=== PATIENT | female | born 1970 | race Caucasian/White ===

== ENCOUNTER 2019-12-18 10:08 | Outpatient (CLI) | payer OTHER, SELFPAY ==
--- NOTE | ~2019-12-18 | US_ITS ---
EXAMINATION:US venous doppler LE BI INDICATION:Localized edema TECHNIQUE: Multiple grayscale, color flow and Doppler images of the lower extremity deep venous syste ms were obtained and reviewed. COMPARISON:No prior studies for comparison. FINDINGS: The common femoral, superficial femoral and popliteal veins demonstrate normal respiratory variation, augmentation and compressibility. Color flow is also seen within the posterior tibial, pe roneal, greater saphenous and profunda veins. No evidence for venous reflux in either extremity. IMPRESSION: 1: No lower extremity deep venous thrombosis or venous reflux. Reviewed, dictated and finalized at location A. ND CREW LINESMAN
== END 2019-12-18 10:09 | disposition home or self-care (01) ==
LOC: ANHIMG 10:08
PROVIDERS: PCP Physician Assistant; Visit Provider Nurse Practitioner Adult Health
DX: R60.0 Localized edema (principal)
CPT/HCPCS: 93970

== ENCOUNTER 2019-12-18 14:46 | Outpatient (CLI) | payer OTHER, SELFPAY ==
--- NOTE | ~2019-12-18 | MM_ITS ---
EXAMINATION: MM screening [facility] BI w manny HISTORY: Screening mammogram TECHNIQUE: Craniocaudal and mediolateral oblique 3-D tomosynthesis images were obtained and synthetic 2-D images were generated. CAD analysis was submitted and interpreted. COMPARISON: Prior mammograms dating back to 04/24/2014 BREAST PARENCHYMAL COMPOSITION: There are scattered areas of fibroglandular density. FINDINGS: RIGHT BREAST: There is questionable slight increase in density of a mass in the middle/posterior thir d of the lower inner breast best appreciated 9 cm from the nipple on craniocaudal tomosynthesis image 16/79. LEFT BREAST: Stable focal asymmetry is present in the upper outer quadrant of the breast. There is no evidence of suspicious mass, calcification, or architectural distortion to suggest malignancy. There has been no significant interval change. IMPRESSION: 1. Possible increase in density of a mass of the lower inner right breast. 2. Additional mammographic views and possible breast ultrasound are recommended. BI-RADS Category 0: Incomplete: Needs additional imaging evaluation. Reviewed, dictated and finalized at location A. ISTRY TUTOR IMPRESSION: 1. Possible increase in density of a mass of the lower inner right breast. 2. Additional mammographic views and possible breast ultrasound are recommended . BI-RADS Category 0: Incomplete: Needs additional imaging evaluation.
== END 2019-12-18 14:47 | disposition home or self-care (01) ==
LOC: ANHIMG 14:48
PROVIDERS: PCP Physician Assistant; Visit Provider Obstetrics & Gynecology
DX: Z12.31 Encounter for screening mammogram for malignant neoplasm of breast (principal); R92.8 Other abnormal and inconclusive findings on diagnostic imaging of breast
CPT/HCPCS: 77063; 77067

== ENCOUNTER 2020-01-08 10:51 | Outpatient (CLI) | payer OTHER, SELFPAY ==
--- NOTE | ~2020-01-08 | MMUS_ITS ---
EXAMINATION: MM diagnostic mammo unilat RT, US breast RT limited HISTORY: Possible increased density of a right breast mass on screening mammogram TECHNIQUE: Additional 3-D tomosynthesis images of the right breast were performed and synthetic 2-D i mages were generated. CAD analysis was submitted and interpreted. High resolution limited right breas t ultrasound was performed. COMPARISON: 12/18/2019, 09/05/2018, 01/29/2017, 05/27/2015 FINDINGS: MAMMOGRAPHIC FINDINGS: There is a low density lobulated, circumscribed mass of the lower inner breast at the 4:00 location 1 0 cm from the nipple. ULTRASOUND: There is no evidence of focal abnormal solid or cystic lesion corresponding to the mammographic findi ng in question. There is a 4 mm cyst at the 4:00 location 7 cm from the nipple. IMPRESSION: 1. Probably benign right breast mass. 2. Recommend 6 month follow-up right diagnostic mammogram and ultrasound. BI-RADS category 3, probably benign findings. Reviewed, dictated and finalized at location A. IMPRESSION: 1. Probably benign right breast mass. 2. Recommend 6 month follow-up right diagnostic mammogram and ultrasound. BI-RADS category 3, probably benign findings.
== END 2020-01-08 10:52 | disposition home or self-care (01) ==
LOC: ANHIMG 10:53
PROVIDERS: PCP Physician Assistant; Visit Provider Obstetrics & Gynecology
DX: R92.8 Other abnormal and inconclusive findings on diagnostic imaging of breast (principal)
CPT/HCPCS: 76642; 77065

== ENCOUNTER 2020-07-10 11:31 | Outpatient (CLI) | payer OTHER, SELFPAY ==
--- NOTE | ~2020-07-10 | MMUS_ITS ---
EXAMINATION: MM diagnostic [facility]ida RT w manny, US breast RT complete HISTORY: Follow-up right breast asymmetry TECHNIQUE: Additional 3-D tomosynthesis images of the right breast were performed and synthetic 2-D i mages were generated. CAD analysis was submitted and interpreted. High resolution right breast ultras ound was performed. COMPARISON: Comparison to multiple prior studies sequentially, with oldest reviewed study dated 04/26. BREAST PARENCHYMAL COMPOSITION: Breast composed of scattered areas of fibroglandular density. FINDINGS: MAMMOGRAPHIC FINDINGS: There are no suspicious masses, calcifications or architectural distortion in the right breast to sug gest malignancy. ULTRASOUND: Right breast ultrasound: There is a 4 mm cyst at 4:00, 7 cm from the nipple and a 6 mm cyst at 9:00, 4 cm from the nipple. Mil dly prominent subareolar ducts. No suspicious masses to suggest malignancy. IMPRESSION: 1. No evidence for malignancy in the right breast. Benign findings. 2. Routine yearly screening mammogram and regular clinical breast examination are recommended. BI-RADS Category 2: Benign finding(s). Reviewed, dictated and finalized at location A. IMPRESSION: 1. No evidence for malignancy in the right breast. Benign findings. 2. Routine yearly screening mammogram and regular clinical breast examination a re recommended. BI-RADS Category 2: Benign finding(s).
== END 2020-07-10 11:32 | disposition home or self-care (01) ==
PROVIDERS: PCP Physician Assistant; Visit Provider Obstetrics & Gynecology
DX: N60.01 Solitary cyst of right breast (principal)
CPT/HCPCS: 76641; 77061; 77065; G0279

== ENCOUNTER 2020-08-30 13:44 | Outpatient (CLI) | payer OTHER, SELFPAY ==
--- NOTE | ~2020-08-30 | XR_ITS ---
EXAMINATION: XR shoulder LT min 2V DATE: 08/30/2020 14:04 INDICATION: Left shoulder pain. TECHNIQUE: 4 views of left shoulder were obtained. COMPARISON: None. FINDINGS: Bone alignment is normal. No fracture. Glenohumeral joint is normal. There is moderate acro mioclavicular joint osteoarthritis. IMPRESSION: 1. Moderate left acromioclavicular joint osteoarthritis. Reviewed, dictated and finalized at location A.
== END 2020-08-30 13:45 | disposition home or self-care (01) ==
PROVIDERS: PCP Physician Assistant; Visit Provider Physician Assistant
DX: M19.012 Primary osteoarthritis, left shoulder (principal)
CPT/HCPCS: 73030

== ENCOUNTER 2020-10-21 10:38 | Outpatient (CLI) | payer OTHER, SELFPAY ==
--- NOTE | ~2020-10-21 | XR_ITS ---
EXAMINATION: XR chest 2V DATE: 10/21/2020 10:59 INDICATION: Cough TECHNIQUE: PA and lateral views of the chest are obtained. COMPARISON: 01/29/2008, 09/01/2004 FINDINGS: The lungs are free of acute opacities. There is no pleural effusion or pneumothorax. The ca rdiomediastinal silhouette is normal. There is mild thoracic spondylosis. IMPRESSION: 1. No acute cardiopulmonary abnormality. Reviewed, dictated and finalized at location A. ROOM ATTENDANT
== END 2020-10-21 10:39 | disposition home or self-care (01) ==
PROVIDERS: PCP Physician Assistant; Visit Provider Physician Assistant
DX: R05 Cough (principal)
CPT/HCPCS: 71046

== ENCOUNTER 2020-11-26 15:44 | Emergency (ER) | payer OTHER, SELFPAY ==
--- NOTE | ~2020-11-26 | CT_ITS ---
EXAMINATION: CT abdomen pelvis w con DATE: 11/26/2020 17:38 INDICATION: Abdominal pain TECHNIQUE: Computed tomography (CT) of the abdomen and pelvis was performed with 100 cc Omnipaque 350 intravenous contrast. Automated exposure control and iterative reconstruction technique were employe d. Exam dose: 1425.12 mGy-cm total exam DLP. COMPARISON: None. FINDINGS: The included lower lung zones are clear of infiltrate or consolidation. Normal heart size. No pericardial or pleural effusion. The liver, gallbladder, bile ducts, pancreas, pancreatic duct, spleen are unremarkable. There is a 3.7 x 4.2 cm soft tissue mass sandwiched between the posterior gastric fundus, left adrena l gland and the anterior aspect of the upper pole of the left kidney. Hypernephroma is not excluded. MR evaluation of the abdomen is recommended. 1.7 cm hypoenhancing lesion of the medial mid left kidney is noted. This would be better evaluated by MR imaging as well. There is an approximately 5 mm upper pole lesion with some fat attenuation which may be a small angio myolipoma of the left kidney. No right renal mass lesion is evident. No urinary tract calculus or hydroureteronephrosis. The urinary bladder is unremarkable. 10 mm peripherally enhancing left ovarian cyst. Peripherally enhancing 2 cm right ovarian cyst. There is mild fluid accumulation in the adnexal areas and dependent pelvis. IUD in expected position in the uterus. Normal caliber of the abdominal aorta. No intraperitoneal or retroperitoneal or pelvic mass lesion o r lymphadenopathy is detected. Normal appendix. There is diverticulosis of the left colon; no evidence of diverticulitis. Small fat containing umbilical hernia. Included skeletal structures are unremarkable, without suspicious osteosclerotic or osteolytic lesion s. IMPRESSION: Indeterminate .2 cm left retroperitoneal mass; MRI is recommended for further evaluatio n of this and a 1.7 cm left renal lesion. Bilateral ovarian cysts IUD in uterus Diverticulosis of the left colon Reviewed, dictated and finalized at Location A. Reviewed, dictated and finalized at location A. P HOME PARAPROFESSIONAL IMPRESSION: Indeterminate .2 cm left retroperitoneal mass; MRI is recommended for further evaluation of this and a 1.7 cm left renal lesion. Bilateral ovarian cysts IUD in uterus Diverticulosis of the left colon
[2020-11-26 15:49] VITALS: BP 138/75; PULSE 95; RESP 20; TEMP 36.9; O2SAT 98
[2020-11-26 16:38] LABS: Basophils Percent Auto 0.4 % (0.2-1.2); Eosinophils Absolute Auto 0.2 K/mm3 (0-0.3); Eosinophils Percent Auto 1.6 % (0-4.4); Hematocrit 41.8 % (37.0-47.0); Hemoglobin 14.7 g/dL (12.0-15.0); Immature Granulocyte Absolute 0.04 K/mm3 (0.00-0.031); Immature Granulocyte Percent A 0.4 % (0-0.5); Lymphocytes Absolute Auto 2.84 K/mm3 (0.9-3.2); Mean Corpuscular HGB Conc 35.2 g/dl (32-36); Mean Corpuscular Hemoglobin 30.3 pg (26-34); Mean Corpuscular Volume 86.2 fl (80-100); Mean Platelet Volume 8.8 fl (7.4-10.4); Monocytes Absolute Auto 0.8 K/mm3 (0.1-0.6); Monocytes Percent Auto 7.3 % (2.6-8.5); Neutrophils Percent Auto 64.3 % (45.5-73.1); Platelet Count Result 281 k/mm3 (150-375); Red Blood Count 4.85 M/mm3 (4.2-5.4); Red Cell Distribution Width 11.9 % (11.5-14.5); White Blood Count 10.9 K/mm3 (4.5-10.0)
[2020-11-26 16:43] LABS: Add Urine Microscopic? YES; Appearance Urine Cloudy (Clear); Bacteria Urine Trace /hpf; Bilirubin Urine Negative (Negative); Blood Urine 1+ (Negative); Color Urine Straw (Yellow); Glucose Urine UA Negative (Negative); Ketones Urine Negative (Negative); Leukocyte Esterase Ur 2+ LEU/UL (Negative); Mucus Urine Rare /lpf; Nitrate Urine Negative (Negative); Protein Urine Negative (Negative); Specific Grav Ur 1.008 (1.001-1.035); Squamous Epithelial Cell Urine Many /hpf (Few); Urobilinogen Urine Negative mg/dL (<2.0); WBC Urine 0-3 /hpf
[2020-11-26 16:51] LABS: Alanine Aminotransferase 12 U/L (4-35); Alkaline Phosphatase 78 U/L (38-126); Anion Gap 8 mmol/L (8-16); Aspartate Amino Transferase 18 U/L (14-36); Bilirubin,Total 0.4 mg/dL (0.2-1.3); Blood Urea Nitrogen 8 mg/dL (7-17); Calcium 8.8 mg/dL (8.4-10.2); Carbon Dioxide 22 mmol/L (22-30); Chloride 106 mmol/L (98-107); Estimated CRCL calculation 139 ml/min; Estimated Glomerular Filt Rate > 60; Glucose 84 mg/dL (65-105); Lipase 449 U/L (23-300); Potassium 3.7 mmol/L (3.4-5.0); Sodium 136 mmol/L (137-145)
--- NOTE | 2020-11-26 17:25 | PC.NURSE ---
pt declined pain medicine at this time. Will continue to monitor pain level.
--- NOTE | 2020-11-26 19:21 | ED.ABDPAIN ---
HPI - Abdominal Pain General Chief Complaint: Abdominal Pain Stated Complaint: abd pain Time Seen by Provider: 11/26/20 15:58 Source: patient Mode of arrival: ambulatory Limitations: no limitations History of Present Illness HPI narrative: Patient presents with chief complaint of umbilical pain that has been waxing and waning in intensity it began suddenly last night. Patient states she has not been able to find any identifying triggers however she became really concerned when the pain intensified this morning but she was able to lay down and the pain began to subside and she was able to go back to sleep so she just presented to her primary care for evaluation today. Her primary care was concerned and told her to go to the emergency department for further investigation. Patient states she was able to pass a bowel movement and did not notice any changes however she did not really look. Patient denies any vomiting although she states when the pain present she does have some nausea. Patient denies any chest pain, shortness of breath, diaphoresis associated with the abdominal pain. Patient states she has never had abdominal pain like this. She denies no history of diverticulitis however the patient states she has never had a colonoscopy. Patient denies any fever, chills, cough. Related Data Allergies Allergy/AdvReac Type Severity Reaction Status Date / Time morphine Allergy Mild N/V Verified 11/26/20 16:36 Penicillins Allergy Unknown SEVERE Verified 11/26/20 16:36 LOCAL REACTION CHILD ???MUSCLE RELAXER-- Allergy Mild SVT-PAT Uncoded 11/26/20 16:36 EPISODE AFTER TAKING Review of Systems Review of Systems: Narrative: CONSTITUTIONAL: Denies fever, chills, or sweats. EYES: Denies visual changes, redness, or discharge. ENT: Denies rhinorrhea, congestion, sore throat, or otalgia. CARDIOVASCULAR: Denies chest pain, palpitations, or edema. RESPIRATORY: Denies cough or dyspnea. GASTROINTESTINAL: Reports abdominal pain, denies vomiting or diarrhea. GENITOURINARY: Denies dysuria or hematuria. SKIN: Denies rash or itching. MUSCULOSKELETAL: Denies back pain, joint pain, or myalgia. NEUROLOGIC: Denies headache, numbness, dizziness, or weakness. PSYCHIATRIC: Denies anxiety or depression. Exam Narrative: Exam Narrative: GENERAL: Well-appearing, well-nourished, and in no acute distress. HEAD: Normocephalic, atraumatic. EYES: PERRLA and EOMI. CHEST: Clear to auscultation. No respiratory distress. No wheezes rales or rhonchi HEART: Regular rate and rhythm. No murmur heard. Normal peripheral pulses. ABDOMEN: Soft, tender right at umbilicus- localized. Not able to palpate deformity, nondistended, normal active bowel sounds. EXTREMITIES: Normal range of motion. No edema. SKIN: Warm, dry, no rash. NEURO: No focal deficits. Alert and oriented x3. PSYCH: Normal mood and affect. Course Vital Signs Vital signs: Vital Signs Temperature 98.5 F 11/26/20 15:49 Pulse Rate 95 11/26/20 15:49 Respiratory Rate 20 11/26/20 15:49 Blood Pressure 138/75 11/26/20 15:49 Pulse Oximetry 98 11/26/20 15:49 Temperature 98.5 F 11/26/20 15:49 Pulse Rate 95 11/26/20 15:49 Respiratory Rate 20 11/26/20 15:49 Blood Pressure 138/75 11/26/20 15:49 Pulse Oximetry 98 11/26/20 15:49 MDM - Abdominal Pain MDM Narrative Medical decision making narrative: CT shows umbilical hernia but there is also Indeterminate .2 cm left retroperitoneal mass; MRI is recommended for further evaluation of this and a 1.7 cm left renal lesion. I have informed the patient of the need to follow-up for further investigation of the renal findings and I have talked to Dr. Hankins about patient's presentation, work-up, imaging and the need for MRI for further investigation into the renal mass lesion. He verbalizes understanding. Patient verbalized understanding of the plan. Patient will be given tramadol to take as needed for pain.
[2020-11-26 19:30] VITALS: BP 134/86; RESP 16
== END 2020-11-26 19:31 | disposition home or self-care (01) ==
PROVIDERS: Physician Assistant; Emergency Provider Emergency Medicine; Family Provider Hospitalist; PCP Physician Assistant
DX: K42.9 Umbilical hernia without obstruction or gangrene (principal); N83.202 Unspecified ovarian cyst, left side; N83.201 Unspecified ovarian cyst, right side; Z97.5 Presence of (intrauterine) contraceptive device; K57.90 Diverticulosis of intestine, part unspecified, without perforation or abscess without bleeding; N28.9 Disorder of kidney and ureter, unspecified; K66.9 Disorder of peritoneum, unspecified
CPT/HCPCS: 36415; 74177; 80053; 81001; 81025; 83690; 85025; 99284; Q9967

== ENCOUNTER 2020-12-03 15:30 | Outpatient (CLI) | payer OTHER, SELFPAY ==
--- NOTE | ~2020-12-03 | MR_ITS ---
EXAMINATION: MR abdomen wo/w con DATE: 12/03/2020 17:02 INDICATION: Left retroperitoneal mass. TECHNIQUE: Magnetic resonance imaging (MRI) of the abdomen was performed without and with 19 mL Multi Shay intravenous contrast. Sequences included coronal T2-weighted FS FSE, coronal and axial FIESTA F S, coronal LAVA-flex, axial LAVA, axial T2-weighted FSE, axial T1-weighted dual-echo FSPGR, axial STI R FSE, and axial DWI. Postcontrast sequences included coronal LAVA-flex and a time course of axial LA VA. COMPARISON: CT abdomen and pelvis 11/26/2020 FINDINGS: The liver, gallbladder, spleen, pancreas, and right adrenal gland are normal. There is a 4.2 cm left adrenal mass containing microscopic fat, consistent with an adenoma. Right kidney is normal. There ar e cysts in left kidney measuring up to 2.0 cm. There are no dilated loops of bowel. There are no path ologically enlarged lymph nodes. There is no free intraperitoneal fluid. There is an intrauterine dev ice in expected position. IMPRESSION: 1. 4.2 cm left adrenal adenoma. 2. Benign cysts in left kidney. Reviewed, dictated and finalized at location A. ENSATION EXPERT
== END 2020-12-03 15:31 | disposition home or self-care (01) ==
PROVIDERS: Family Provider Hospitalist; PCP Physician Assistant; Visit Provider Physician Assistant
DX: N28.89 Other specified disorders of kidney and ureter (principal); D35.02 Benign neoplasm of left adrenal gland
CPT/HCPCS: 74183; A9577

== ENCOUNTER 2021-03-21 12:25 | Outpatient (CLI) | payer OTHER, SELFPAY ==
--- NOTE | ~2021-03-21 | MMUS_ITS ---
EXAMINATION: MM diagnostic brigida BI w manny, US breast LT limited HISTORY: Follow-up breast asymmetries TECHNIQUE: Additional 3-D tomosynthesis images of the breasts were performed and synthetic 2-D images were generated. CAD analysis was submitted and interpreted. High resolution Limited left breast ultr asound was performed. COMPARISON: Comparison to multiple prior studies sequentially, with oldest reviewed study dated 05/27. BREAST PARENCHYMAL COMPOSITION: Breast composed of scattered areas of fibroglandular density FINDINGS: MAMMOGRAPHIC FINDINGS: There are no suspicious masses, calcifications or architectural distortion. Left breast asymmetry in the upper outer quadrant is less dense with spot compression views. ULTRASOUND: Limited left breast ultrasound: Normal heterogeneous echotexture in the upper outer quadrant of the l eft breast. IMPRESSION: 1. No evidence for malignancy in either breast. 2. Routine yearly screening mammogram and regular clinical breast examination are recommended. BI-RADS Category 1: Negative Reviewed, dictated and finalized at location A. IMPRESSION: 1. No evidence for malignancy in either breast. 2. Routine yearly screening mammogram and regular clinical breast examination a re recommended. BI-RADS Category 1: Negative
== END 2021-03-21 12:26 | disposition home or self-care (01) ==
LOC: ANHIMG 12:29
PROVIDERS: PCP Physician Assistant; Visit Provider Obstetrics & Gynecology
DX: R92.8 Other abnormal and inconclusive findings on diagnostic imaging of breast (principal)
CPT/HCPCS: 76642; 77062; 77066; G0279

== ENCOUNTER 2021-10-15 14:52 | Outpatient (CLI) | payer OTHER, SELFPAY ==
--- NOTE | ~2021-10-15 | CT_ITS ---
EXAMINATION: CT sinus wo con DATE: 10/15/2021 15:19 INDICATION: Chronic sinusitis. TECHNIQUE: Computed tomography (CT) of the paranasal sinuses was performed without intravenous contra st. The dose-length product was 306.67 mGy-cm. Automated exposure control and iterative reconstructio n technique were employed. COMPARISON: None FINDINGS: There is a mucous retention cyst of the left frontal sinus. There is mild mucosal thickenin g of the ethmoid and maxillary sinuses. Surgical changes of the ostiomeatal units noted. No air-fluid levels. No significant mucoperiosteal reaction. Leftward nasal septal deviation. IMPRESSION: 1. Mild paranasal sinus disease with mucous retention cyst in the left frontal sinus. Reviewed, dictated and finalized at location A. RNAL SPECIALIST
== END 2021-10-15 14:53 | disposition home or self-care (01) ==
LOC: ANHIMG 15:03
PROVIDERS: PCP Physician Assistant; Visit Provider Otolaryngology
DX: J34.2 Deviated nasal septum (principal); J32.9 Chronic sinusitis, unspecified; R09.82 Postnasal drip; R09.81 Nasal congestion; J39.2 Other diseases of pharynx
CPT/HCPCS: 70486

== ENCOUNTER 2021-10-17 16:49 | Outpatient (CLI) | payer OTHER, SELFPAY ==
--- NOTE | ~2021-10-17 | XR_ITS ---
XR ankle LT min 3V DATE: 10/17/2021 17:10 INDICATION: Left ankle sprain and 3 months left ankle pain TECHNIQUE: 4 views COMPARISON: None FINDINGS: Mild plantar calcaneal enthesopathy. No fracture or dislocation of the ankle or disruption of the ankle mortise. No periosteal reaction or bone destruction. IMPRESSION: Mild plantar calcaneal enthesopathy No fracture or dislocation Reviewed, dictated and finalized at location A. 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
== END 2021-10-17 16:50 | disposition home or self-care (01) ==
LOC: ANHIMG 16:54
PROVIDERS: PCP Physician Assistant; Visit Provider Physician Assistant
DX: S93.492A Sprain of other ligament of left ankle, initial encounter (principal); M77.32 Calcaneal spur, left foot
CPT/HCPCS: 73610

== ENCOUNTER 2021-11-28 01:37 | Day surgery (SDC) | payer OTHER, SELFPAY ==
[2021-11-25 10:37] VITALS: BMI 32.1
--- NOTE | 2021-11-25 10:49 | PC.NURSE ---
Report to the Outpatient Waiting Room, entrance under the green pavilion located off [facility], at time 0600 on date 11/28/21. OR Time: 0730. - You will be asked a series of questions to screen for COVID 19 for your protection. - A mask is required within the hospital. - No visitors are allowed at this time. Preoperative COVID Testing Requirements: No COVID Test needed if: (proof is required; if not received patient will have Rapid Test prior to entry) - Patient has received COVID Vaccine at least 14 days prior to procedure date or - Patient has positive COVID test result within last 90 days of surgery date. COVID Test needed if above criteria is not met Patients may have clear liquids (water, carbonated beverages, clear teas, apple juice) until 3 hours prior to surgery with a maximum of 20 ounces. - No food from midnight until time of surgery Take the following medications with a SIP of water the morning of surgery: VERAPAMIL, LEVOTHYROXINE Medications to discontinue per physician: VITAMINS/SUPPLEMENTS Date to take last dose: 11/24/21 Please no make-up, nail maltese, hairspray, perfume, deodorant, or body powder the day of surgery. No jewelry (including any body piercings) or valuables the day of surgery, leave them at home. Please take a shower or bath the night before, or the morning of, surgery with an antibacterial soap. Wear comfortable, loose fitting clothing. - Jewelry must be removed prior to entering the operating room. Rings and piercings that are not removed may be cut off. - The hospital will not accept responsibility for valuables. - Please leave all valuables, including medications, at home the day of surgery. If you are going home after surgery, a licensed moving van driver must drive you home. - NO public transportation without another adult. - We recommend that an adult stay with you for 24 hours following discharge. - We also recommend that you do not drive, make important decision, drink alcoholic beverages, or take any drugs that were not prescribed by your health care provider for at least 24 hours after your discharge time. Follow any additional instructions given to you from your surgeon. Telephone instructions given to MANNY BROOKE and asked if any additional questions and then verbalized understanding. Patient advised to call surgeon office or pre surgery nurse liaison [phone] if any additional questions.
--- NOTE | 2021-11-27 07:57 | PM.IMHP ---
H&P: HPI History of Present Illness Date/Time: 11/27/21 07:57 Chief Complaint: septal deviation turbinate hypertrophy chronic sinusitis recurrent sinusitis facial pressure facial pain nasopharyngeal cyst postnasal drainage nasal obstruction nasal congestion Narrative: patient presents for planned surgical procedures no change in medical history no change in symptoms Review of Systems Constitutional: Constitutional: Denies fatigue, Denies fever(s) and Denies lethargy Eyes: Eyes: Denies blurry vision and Denies change in vision ENT: Reports as per HPI Cardiovascular: Cardiovascular: Denies chest pain Respiratory: Respiratory: Denies cough Endocrine: Endocrine: Denies fatigue Hematologic/Lymphatic: Hematologic/Lymphatic: Denies easy bleeding, Denies easy bruising and Denies lymphadenopathy Allergic/Immunologic: Allergic/Immunologic: Denies seasonal rhinorrhea [facility] Family History Family History Father Diabetes mellitus Heart disease Thyroid disorder Mother Diabetes mellitus Heart disease TIA (transient ischemic attack) Other Depression Grandparent Alcoholism Grandparent Diabetes mellitus Tongue cancer Heart disease Social History Social History Smoking packs per day: 1 Smoking cigarettes per day: 20.0 Years smoked: 33 Smoking pack-years: 33.00 Smoking status: Former smoker Tobacco type: cigarettes Smoking end date: 12/30/20 Alcohol intake: current Drinks per week: 6 Substance use: never Substance use type: does not use Spiritual care concerns: No Meds Home Medications and Allergies Home Medications Medication Instructions Recorded Confirmed Type levocetirizine 5 mg tablet 5 mg PO HS 03/06/21 11/25/21 History levothyroxine 100 mcg capsule 100 mcg PO DAILY 03/06/21 11/25/21 History multivitamin 1 tablet PO DAILY 03/06/21 11/25/21 History verapamil 240 mg 24 hr 240 mg PO DAILY 03/06/21 11/25/21 History capsule,extended release azelastine 137 mcg (0.1 %) nasal 1 spray INTRANASAL Q12H #30 ml 04/21/21 11/25/21 Rx spray aerosol semaglutide (weight loss) 1.7 2.4 mg SUBCUT WEEKLY 10/06/21 11/25/21 History mg/0.75 mL subcutaneous pen injector ergocalciferol (vitamin D2) 1,250 mcg PO WEEKLY 11/25/21 11/25/21 History [Vitamin D2] Allergies Allergy/AdvReac Type Severity Reaction Status Date / Time morphine Allergy Mild N/V Verified 11/25/21 10:35 Penicillins Allergy Unknown SEVERE Verified 11/25/21 10:35 LOCAL REACTION CHILD ???MUSCLE RELAXER-- Allergy Mild SVT-PAT Uncoded 11/25/21 10:35 EPISODE AFTER TAKING Exam Const: General: cooperative, healthy appearing, comfortable, well developed and alert HENMT: Head: normal to inspection, normocephalic and atraumatic Ears: hearing grossly normal bilaterally, external ears normal, TM's normal bilaterally and EAC's normal General nose exam: Normal external nose present, Normal nares present, No nasal polyps present, mucous membranes and turbinates abnormal, abnormal septum and Other nasal findings present ( septal deviation turbinate hypertrophy) Face and sinus: normal facial exam Mouth: Yes Normal oral and palatal mucosa present, Yes lip normal, Yes tongue normal, Yes oropharynx normal and Yes moist mucous membranes Teeth and gingiva: dentition normal and gingiva normal Throat: posterior oropharynx normal, tonsils normal and uvula midline Eyes: General: appearance normal, both eyes and all related structures Periorbital: periorbital findings normal Eyelids: eyelids normal Conjunctivae: conjunctivae normal Sclera: sclerae normal Neck: Neck: normal visual inspection, full ROM and no lymphadenopathy Thyroid: thyroid normal Lymphatic: no lymphadenopathy noted Resp: Effort & Inspection: normal respiratory effort and able to speak in complete sentences Cardio: Jug
[2021-11-28] VITALS (9 sets, daily range): BP systolic 111–145; BP diastolic 64–77; PULSE 72–91; RESP 12–17; TEMP 36.7–36.9; O2SAT 97–100
[2021-11-28] MEDS: ACETAMINOPHEN 500 MG TABLET 1000 MG PO (06:50)
[2021-11-28] MEDS: LACTATED RINGERS 1,000 ML 30 ML IV CONT ×2 (06:58→09:40)
--- NOTE | 2021-11-28 07:02 | WPDANESEPPF ---
Anes - Initial Pre Proc Eval Procedure: Operation Date: 11/28/21 07:30 Proposed Procedures p Image Guided Endoscopic Bilateral Maxillary Antrostomy, Anterior Ethmoidectomy, Frontal Sinusotomy, Excision Nasopharyngeal Cyst, Bilateral Inferior Turbinectomy, - Christos Tamez MD s Septoplasty - Christos Tamez MD Date/Time: 11/28/21 07:02 Surgeon: Christos Tamez MD Pre Op Diagnosis: chronic sinusitis Patient Data Age: 51 Gender: F Height: 1.7 m Weight: 95.5 kg Last Vital Signs Temp 36.7 C 11/28/21 06:27 Pulse 85 11/28/21 06:27 Resp 16 11/28/21 06:27 BP 111/69 11/28/21 06:27 Pulse Ox 98 11/28/21 06:27 Allergies Allergy/AdvReac Type Severity Reaction Status Date / Time morphine Allergy Mild N/V Verified 11/25/21 10:35 Penicillins Allergy Unknown SEVERE Verified 11/25/21 10:35 LOCAL REACTION CHILD ???MUSCLE RELAXER-- Allergy Mild SVT-PAT Uncoded 11/25/21 10:35 EPISODE AFTER TAKING Home Medications Medication Instructions Recorded Confirmed Type levocetirizine 5 mg tablet 5 mg PO HS 03/06/21 11/28/21 History levothyroxine 100 mcg capsule 100 mcg PO DAILY 03/06/21 11/28/21 History multivitamin 1 tablet PO DAILY 03/06/21 11/28/21 History verapamil 240 mg 24 hr 240 mg PO DAILY 03/06/21 11/28/21 History capsule,extended release azelastine 137 mcg (0.1 %) nasal 1 spray INTRANASAL Q12H #30 ml 04/21/21 11/28/21 Rx spray aerosol semaglutide (weight loss) 1.7 2.4 mg SUBCUT WEEKLY 10/06/21 11/28/21 History mg/0.75 mL subcutaneous pen injector ergocalciferol (vitamin D2) 1,250 mcg PO WEEKLY 11/25/21 11/28/21 History [Vitamin D2] Patient hx anesthesia problems: none Family hx anesthesia problems: none Results Review: All pre-operative results and documents have been reviewed as part of the pre-operative evaluation. [facility] Past Medical History Medical History (Updated 11/28/21 @ 07:03 by Dheeraj Varela MD) Obesity Smoker SVT (supraventricular tachycardia) Surgical History Surgical History (Updated 11/28/21 @ 07:04 by Dheeraj Varela MD) H/O arthroscopic knee surgery History of adrenal surgery [place] 2020 laparoscopic removal of adrenal mass Family History Family History Father Diabetes mellitus Heart disease Thyroid disorder Mother Diabetes mellitus Heart disease TIA (transient ischemic attack) Other Depression Grandparent Alcoholism Grandparent Diabetes mellitus Tongue cancer Heart disease Social History Social History Smoking packs per day: 1 Smoking cigarettes per day: 20.0 Years smoked: 33 Smoking pack-years: 33.00 Smoking status: Former smoker Tobacco type: cigarettes Smoking end date: 12/30/20 Alcohol intake: current Drinks per week: 6 Substance use: never Substance use type: does not use Living arrangements: with family Spiritual care concerns: No Anes - Eval Final PreProcedure Day of Procedure 11/28/21 07:02 Patient weight: obese Heart: regular rate and rhythm Lungs: clear to auscultation Airway: Mallampati scale class II Neurological: alert and oriented Last oral intake: >/= 8 hours ASA classification: III Emergent: no Anesthetic plan: proceed Anesthesia type and monitoring: general ETT and standard monitoring Results Review: All pre-operative results and documents have been reviewed as part of the pre-operative evaluation. Informed Consent: The patient's anesthetic plan and its attendant risks and benefits were discussed with the patient/family/POA. Questions were solicited and answers provided to the satisfaction of the patient/family/POA.
--- NOTE | 2021-11-28 07:12 | WPDHPUPDATE1 ---
History and Physical Update Update Date/Time: 11/28/21 07:12 History and Physical has been reviewed, including an updated exam of the patient. There are NO changes in the patient's condition. Risks, benefits, and alternatives have been discussed and questions answered. Patient agrees to proceed with procedure.
[2021-11-28] MEDS: ceFAZolin 2 GM/D5W 50 ML 2 GM/50 ML BAG IVPB (07:29)
--- NOTE | 2021-11-28 07:29 | SUR.PREOP ---
PER DR WEST NO EKG NECESSARY
[2021-11-28] MEDS: SCOPOLAMINE 1.5 MG PATCH TRANSDERM (07:33)
[2021-11-28] MEDS: LIDO 1%/EPINEPHRINE 1:100,000 50 ML VIAL INFILTRATE (07:51)
[2021-11-28] MEDS: OXYMETAZOLINE HCL 0.05% NAS 15 ML BTL (*BKC) 1 SPRAY NASAL (07:52)
--- NOTE | 2021-11-28 09:20 | W.PM.PROC2 ---
Procedure Note - Detailed Date of Procedure 11/28/21 Pre-op Diagnosis chronic sinusitis, inferior turbinate hypertrophy, nasal obstruction, nasal congestion, nasopharyngeal cyst, postnasal drainage Post-op Diagnosis same Procedure Performed Image guided bilateral maxillary antrostomy, anterior ethmoid ectomy, frontal sinusotomy, inferior turbinate resection submucosally with outfracture, resection of nasopharyngeal cyst Surgeon Christos Tamez MD Anesthesia general Indications See above Findings Large nasopharyngeal cyst purulence within it resected successfully. This significant turbinate hypertrophy reduced well large mulberry tips well reduced, mucoid purulence in the opacified cells on the CT scan anterior ethmoids and frontals. Description of Procedure Patient correctly identified consent verified. Patient brought operating room. Time-out performed. General anesthesia induced endotracheal tube secured taped the left lower lip. Image guidance initiated. Second time-out performed. After patient was prepped and draped for procedure. Afrin-soaked pledgets placed allowed to sit for 5 minutes then removed. 0 degree endoscope utilized with the aforementioned findings noted. Nasopharyngeal cyst resected using combination of Zhang forceps biopsy sent microdebrider and Bovie suction electrocautery at a setting of 10. Hemostasis was excellent. Turbinates then outfractured. Keller tips these were injected with 0.75 cc 1% lidocaine 1 100,000 parts epinephrine into each inferior turbinate debrided submucosally using the microdebrider 2 mm blade and mulberry tips were cauterized using Bovie suction electrocautery at 15. Well reduced afterwards excellent hemostasis. Sinus surgery performed bilaterally maxillary antrostomies were created when widened using straight through cut backbiter and microdebrider anterior ethmoids had very osteitic bone Kerrison utilized to open them mucoid purulence located in the opacified cells microdebrider utilized to clean them up 70 degree scope utilized to perform frontal sinus sinusotomies. Mucoid purulence located the opacified cells. Afrin-soaked pledgets were placed the bilateral me I let to sit for 5 minutes. Excellent hemostasis. I performed all dictated portions of the procedure. There were no complications. Total blood loss about 20 cc. All hardware including pledgets were removed. Care the patient turned Anesthesiology. No packing biopsy sent of nasopharyngeal cyst. No complications. Estimated Blood Loss 20 Drains No Packing No Pathology yes Complications No immediate complications Condition stable Disposition PACU
[2021-11-28] MEDS: fentaNYL CITRATE INJ (*CRX) 100 MCG/2 ML VIAL 25 MCG IV PUSH ×2 (09:22→09:25)
[2021-11-28] MEDS: ONDANSETRON INJ 4 MG/2 ML VIAL IV PUSH (09:38)
[2021-11-28] MEDS: diphenhydrAMINE HCl INJ 50 MG/ML VIAL 25 MG IV PUSH ×2 (09:44→09:48)
--- NOTE | 2021-11-28 09:58 | SUR.PHASEI ---
PT STATES NAUSEA IS BETTER
== END 2021-11-28 11:30 | disposition home or self-care (01) ==
PROVIDERS: PCP Physician Assistant; Visit Provider Otolaryngology
PROC: (CPT 31256; principal; 2021-11-28 07:30)
DX: R51.9 Headache, unspecified (principal); R44.8 Other symptoms and signs involving general sensations and perceptions; J34.2 Deviated nasal septum; R09.81 Nasal congestion; J34.3 Hypertrophy of nasal turbinates; J32.9 Chronic sinusitis, unspecified; R09.82 Postnasal drip; J39.2 Other diseases of pharynx; J31.2 Chronic pharyngitis; I47.1 Supraventricular tachycardia; E03.9 Hypothyroidism, unspecified; E66.9 Obesity, unspecified; Z68.33 Body mass index [BMI] 33.0-33.9, adult; Z87.891 Personal history of nicotine dependence; J34.89 Other specified disorders of nose and nasal sinuses
CPT/HCPCS: 31256; 31254; 61782; 31276; 30140; 88305; 88313; A9270; J0690; J1100; J1200; J2250; J2405; J2704; J2765; J3010; J7120

== ENCOUNTER → 2022-01-29 11:11 | Outpatient (CLI) | payer OTHER, SELFPAY ==
--- NOTE | ~2022-01-29 | US_ITS ---
EXAMINATION: US soft tissue LE LT EXAM DATE: 01/29/2022 11:30 INDICATION: Localized swelling, Mass and lump, left lower limb . TECHNIQUE: Multiple grayscale and Doppler images of the symptomatic left tibial region were obtained (by a technologist who performed the scan) and subsequently reviewed. FINDINGS: Scanning in the left lower leg anterior region of concern demonstrates mildly edematous ap pearing fat without any focal abscess, mass or thrombophlebitis. IMPRESSION: Possible mild nonspecific subcutaneous edema. Reviewed, dictated and finalized at location B.
== END ==
PROVIDERS: PCP Family Medicine; Visit Provider Family Medicine
DX: R22.42 Localized swelling, mass and lump, left lower limb (principal)
CPT/HCPCS: 76882

== ENCOUNTER 2022-04-21 13:22 | Outpatient (CLI) | payer OTHER, SELFPAY ==
--- NOTE | ~2022-04-21 | MM_ITS ---
EXAMINATION: MM diagnostic brigida BI w manny HISTORY: Mammographic asymmetries TECHNIQUE: ML, MLO and CC 3-D tomosynthesis images of both breasts were performed and synthetic 2-D i mages were generated. CAD analysis was submitted and interpreted. COMPARISON: 03/21/2021 bilateral diagnostic mammogram and limited left breast ultrasound 07/10/2020 diagnostic right mammogram and complete right breast ultrasound 01/08/2020 diagnostic right mammogram and limited right breast ultrasound 12/18/2019, 09/05/2018,01/29/2017bilateral screening mammogram examinations BREAST PARENCHYMAL COMPOSITION: There are scattered areas of fibroglandular density. FINDINGS: Mild fibroglandular asymmetry. No suspicious mass or architectural distortion, malignant ca lcification, skin thickening or retraction or significant new or developing density is detected. IMPRESSION: 1. No mammographic evidence of malignancy 2. Routine annual mammographic screening is recommended. BI-RADS Category 2: Benign finding(s). Reviewed, dictated and finalized at location A.
== END 2022-04-21 13:23 | disposition home or self-care (01) ==
PROVIDERS: PCP Family Medicine; Visit Provider Obstetrics & Gynecology
DX: R92.2 Inconclusive mammogram (principal)
CPT/HCPCS: 77062; 77066; G0279

== ENCOUNTER 2022-09-08 00:45 | Day surgery (SDC) | payer OTHER, SELFPAY ==
[2022-08-28 15:53] VITALS: BMI 29.7
--- NOTE | 2022-09-08 07:13 | SUR.PREOP ---
Patient states she has IUD-Mirena. LMP was [address] Daily who states that no preg test is necessary. Cancelled order.
[2022-09-08 07:15] VITALS: BP 134/64; PULSE 88; RESP 18; TEMP 36.6; O2SAT 100
[2022-09-08] MEDS: LACTATED RINGERS 1,000 ML 150 ML IV CONT (07:25)
--- NOTE | 2022-09-08 07:35 | WPDANESEPPF ---
Anes - Initial Pre Proc Eval Procedure: Operation Date: 09/08/22 08:15 Proposed Procedures p Screening Colonoscopy - Ricardo Yang MD Date/Time: 09/08/22 07:35 Surgeon: Ricardo Yang MD Pre Op Diagnosis: Neoplasm Screening Patient Data Age: 52 Gender: F Height: 1.7 m Weight: 86.8 kg Last Vital Signs Temp 36.6 C 09/08/22 07:15 Pulse 88 09/08/22 07:15 Resp 18 09/08/22 07:15 BP 134/64 09/08/22 07:15 Pulse Ox 100 09/08/22 07:15 O2 Del Method Room Air 09/08/22 07:15 Allergies Allergy/AdvReac Type Severity Reaction Status Date / Time morphine Allergy Mild N/V Verified 09/08/22 07:10 Penicillins Allergy Unknown SEVERE Verified 09/08/22 07:10 LOCAL REACTION CHILD ???MUSCLE RELAXER-- Allergy Mild SVT-PAT Uncoded 09/08/22 07:10 EPISODE AFTER TAKING Home Medications Medication Instructions Recorded Confirmed Type levocetirizine 5 mg tablet 5 mg PO HS 03/06/21 09/08/22 History levothyroxine 100 mcg capsule 100 mcg PO DAILY 03/06/21 09/08/22 History multivitamin 1 tablet PO DAILY 03/06/21 09/08/22 History verapamil 240 mg 24 hr 240 mg PO DAILY 03/06/21 09/08/22 History capsule,extended release azelastine 137 mcg (0.1 %) nasal 1 spray intranasal Q12H #30 mL 04/21/21 09/08/22 Rx spray aerosol semaglutide (weight loss) 1.7 2.4 mg subcut WEEKLY 10/06/21 09/08/22 History mg/0.75 mL subcutaneous pen injector (Wegovy) ergocalciferol (vitamin D2) 1,250 1,250 mcg PO WEEKLY 11/25/21 09/08/22 History mcg (50,000 unit) capsule (Vitamin D2) mupirocin 2 % topical ointment 1 applic topical BID #22 grams 12/11/21 09/08/22 Rx doxycycline hyclate 100 mg capsule 100 mg PO BID #14 caps 03/31/22 09/08/22 Rx Patient hx anesthesia problems: none Family hx anesthesia problems: none Results Review: All pre-operative results and documents have been reviewed as part of the pre-operative evaluation. [facility] Past Medical History Medical History GERD (gastroesophageal reflux disease) Obesity Smoker SVT (supraventricular tachycardia) Surgical History Surgical History H/O arthroscopic knee surgery History of adrenal surgery [place] 2020 laparoscopic removal of adrenal mass Family History Family History Father Diabetes mellitus Heart disease Thyroid disorder Mother Diabetes mellitus Heart disease TIA (transient ischemic attack) Other Depression Grandparent Alcoholism Grandparent Diabetes mellitus Tongue cancer Heart disease Social History Social History Smoking packs per day: 1 Smoking cigarettes per day: 20.0 Years smoked: 33 Smoking pack-years: 33.00 Smoking status: Former smoker Tobacco type: cigarettes Smoking end date: 12/30/20 Alcohol intake: current Drinks per week: 6 Alcohol use details: occasionally Substance use: never Substance use type: does not use Living arrangements: with family Spiritual care concerns: No Anes - Eval Final PreProcedure Day of Procedure 09/08/22 07:35 Patient weight: obese Heart: regular rate and rhythm Lungs: decreased breath sounds Airway: Mallampati scale class II Neurological: alert and oriented Last oral intake: >/= 8 hours ASA classification: III Emergent: no Anesthetic plan: proceed Anesthesia type and monitoring: general GIVS and standard monitoring Results Review: All pre-operative results and documents have been reviewed as part of the pre-operative evaluation. Informed Consent: The patient's anesthetic plan and its attendant risks and benefits were discussed with the patient/family/POA. Questions were solicited and answers provided to the satisfaction of the patient/family/POA.
--- NOTE | 2022-09-08 08:05 | PM.HPGS ---
History of Present Illness History of Present Illness Consent: Risks, benefits, and alternatives have been discussed and questions answered. Patient agrees to proceed with procedure. Chief complaint: Neoplasm Screening Narrative: Carol Madera is a 52 year old female here for first screening colonoscopy Review of Systems Constitutional: Constitutional: Denies headache(s) and Denies weakness Eyes: Eyes: Denies blurry vision ENT: Reports Normal hearing present, Denies headache(s) and Denies neck pain Cardiovascular: Cardiovascular: Denies chest pain and Denies dyspnea Respiratory: Respiratory: Denies dyspnea Gastrointestinal: Gastrointestinal: Reports no additional gastrointestinal complaints Genitourinary: Genitourinary: Denies dysuria Musculoskeletal: Musculoskeletal: Denies neck pain Integumentary/Breasts: Skin/Breast: Denies dry skin Neurologic: Reports Normal hearing present, Denies headache(s) and Denies weakness Psychiatric: Psychiatric: Denies anxiety Endocrine: Endocrine: Denies change in body appearance Hematologic/Lymphatic: Hematologic/Lymphatic: Denies easy bleeding Allergic/Immunologic: Allergic/Immunologic: Denies urticaria [facility] Past Medical History Medical History (Updated 09/08/22 @ 08:06 by Ricardo Yang MD) Colon cancer screening GERD (gastroesophageal reflux disease) Obesity Smoker SVT (supraventricular tachycardia) Surgical History Surgical History H/O arthroscopic knee surgery History of adrenal surgery 2020 laparoscopic removal of adrenal mass Family History Family History Father Diabetes mellitus Heart disease Thyroid disorder Mother Diabetes mellitus Heart disease TIA (transient ischemic attack) Other Depression Grandparent Alcoholism Grandparent Diabetes mellitus Tongue cancer Heart disease Social History Social History Smoking packs per day: 1 Smoking cigarettes per day: 20.0 Years smoked: 33 Smoking pack-years: 33.00 Smoking status: Former smoker Tobacco type: cigarettes Smoking end date: 12/30/20 Alcohol intake: current Drinks per week: 6 Alcohol use details: occasionally Substance use: never Substance use type: does not use Living arrangements: with family Spiritual care concerns: No Meds Home Medications and Allergies Home Medications Medication Instructions Recorded Confirmed Type levocetirizine 5 mg tablet 5 mg PO HS 03/06/21 09/08/22 History levothyroxine 100 mcg capsule 100 mcg PO DAILY 03/06/21 09/08/22 History multivitamin 1 tablet PO DAILY 03/06/21 09/08/22 History verapamil 240 mg 24 hr 240 mg PO DAILY 03/06/21 09/08/22 History capsule,extended release azelastine 137 mcg (0.1 %) nasal 1 spray intranasal Q12H #30 mL 04/21/21 09/08/22 Rx spray aerosol semaglutide (weight loss) 1.7 2.4 mg subcut WEEKLY 10/06/21 09/08/22 History mg/0.75 mL subcutaneous pen injector (Wegovy) ergocalciferol (vitamin D2) 1,250 1,250 mcg PO WEEKLY 11/25/21 09/08/22 History mcg (50,000 unit) capsule (Vitamin D2) mupirocin 2 % topical ointment 1 applic topical BID #22 grams 12/11/21 09/08/22 Rx doxycycline hyclate 100 mg capsule 100 mg PO BID #14 caps 03/31/22 09/08/22 Rx Allergies Allergy/AdvReac Type Severity Reaction Status Date / Time morphine Allergy Mild N/V Verified 09/08/22 07:10 Penicillins Allergy Unknown SEVERE Verified 09/08/22 07:10 LOCAL REACTION CHILD ???MUSCLE RELAXER-- Allergy Mild SVT-PAT Uncoded 09/08/22 07:10 EPISODE AFTER TAKING Vital Signs Vital Signs - 24 hr 09/08/22 07:15 Temperature 97.9 F Pulse Rate 88 Respiratory Rate 18 Blood Pressure 134/64 Pulse Oximetry 100 Oxygen Delivery Room Air Exam Const: General: co
[2022-09-08 08:37] VITALS: BP 110/70; PULSE 87; RESP 23; O2SAT 99
[2022-09-08 08:47] VITALS: BP 114/72; PULSE 80; RESP 18; O2SAT 99
[2022-09-08 08:57] VITALS: BP 113/68; PULSE 75; RESP 15; O2SAT 99
== END 2022-09-08 09:10 | disposition home or self-care (01) ==
PROVIDERS: PCP Family Medicine; Visit Provider Internal Medicine Gastroenterology
PROC: 0DJD8ZZ Inspection of Lower Intestinal Tract, Via Natural or Artificial Opening Endoscopic (ICD-10-PCS; CPT 45378; principal; 2022-09-08 08:15)
DX: Z12.11 Encounter for screening for malignant neoplasm of colon (principal); K57.30 Diverticulosis of large intestine without perforation or abscess without bleeding; K64.8 Other hemorrhoids; D12.3 Benign neoplasm of transverse colon; D12.5 Benign neoplasm of sigmoid colon; I47.1 Supraventricular tachycardia; Z87.891 Personal history of nicotine dependence; E66.9 Obesity, unspecified; Z68.30 Body mass index [BMI] 30.0-30.9, adult; Z79.899 Other long term (current) drug therapy
CPT/HCPCS: 45385; 88305; J2704; J7120

== ENCOUNTER 2023-05-20 13:40 | Outpatient (CLI) | payer OTHER, SELFPAY ==
--- NOTE | ~2023-05-20 | CT_ITS ---
EXAMINATION:CT lung screening DATE: 05/20/2023 13:58 INDICATION: Tobacco use. Smoker who quit 3 years ago with 33 pack year history. TECHNIQUE: Computed tomography (CT) of the chest was performed without intravenous contrast. Automate d exposure control and iterative reconstruction technique were employed. The dose-length product (DLP ) was 155.17 mGy-cm. COMPARISON: CT abdomen and pelvis 11/26/2020 FINDINGS: There is mild emphysema. A calcified right lung nodule is consistent with old granulomatous disease. The lungs demonstrate mild atelectasis. No pleural effusion. The heart size is normal. No p ericardial effusion. There is mild thoracic spondylosis. IMPRESSION: 1. Lung-RADS category 1: Negative. Continue annual screening with noncontrast low-dose chest CT in 12 months. Reviewed, dictated and finalized at location A. IMPRESSION: 1. Lung-RADS category 1: Negative. Continue annual screening with noncontrast l ow-dose chest CT in 12 months.
== END 2023-05-20 13:41 | disposition home or self-care (01) ==
PROVIDERS: PCP Family Medicine; Visit Provider Physician Assistant
DX: Z12.2 Encounter for screening for malignant neoplasm of respiratory organs (principal); Z87.891 Personal history of nicotine dependence
CPT/HCPCS: 71271

== ENCOUNTER 2023-11-17 17:59 | Emergency (ER) | payer OTHER, SELFPAY ==
[2023-11-17 18:11] VITALS: BP 129/72; PULSE 69; RESP 16; TEMP 36.6; O2SAT 100
[2023-11-17 18:14] VITALS: BP 129/72; PULSE 69; RESP 16; TEMP 36.6; O2SAT 100
--- NOTE | 2023-11-17 18:38 | ED.BACK ---
HPI - Back Pain/Injury General Chief Complaint: Back Pain/Injury Stated Complaint: Lower Back Pain Time Seen by Provider: 11/17/23 18:23 Source: patient and RN notes reviewed Mode of arrival: ambulatory Limitations: no limitations History of Present Illness HPI Narrative: Patient presents today complaining of right-sided low back pain since yesterday. States that is worse and occasionally will wrap around to the lateral abdomen. No radiation to the buttock or leg. Denies any heavy lifting. States the pain is constant with occasional sharp shooting pain. Pain does not increase with movement. Currently rates her pain 4/10 and has tried no [id number] interventions prior to arrival. She denies any urinary symptoms. Related Data Home Medications Medication Instructions Recorded Confirmed levocetirizine 5 mg tablet 5 mg PO HS 03/06/21 11/17/23 multivitamin 1 tablet PO DAILY 03/06/21 11/17/23 verapamil 240 mg 24 hr 240 mg PO DAILY 03/06/21 11/17/23 capsule,extended release ergocalciferol (vitamin D2) 1,250 1,250 mcg PO WEEKLY 11/25/21 11/17/23 mcg (50,000 unit) capsule (Vitamin D2) cyanocobalamin (vitamin B-12) 1,000 mcg PO DAILY 04/07/23 11/17/23 1,000 mcg capsule levothyroxine 100 mcg capsule 88 mcg PO DAILY 04/07/23 11/17/23 estradiol 1 mg tablet 1 mg PO DAILY 07/21/23 11/17/23 semaglutide (weight loss) 2.4 2.4 mg subcut WEEKLY 11/17/23 11/17/23 mg/0.75 mL subcutaneous pen injector (Wegovy) zonisamide 25 mg capsule 25 mg PO DAILY 11/17/23 11/17/23 Allergies Allergy/AdvReac Type Severity Reaction Status Date / Time morphine AdvReac Intermediate Nausea and Verified 11/17/23 18:11 Vomiting Penicillins AdvReac Intermediate SEVERE Verified 11/17/23 18:11 LOCAL REACTION CHILD ???MUSCLE RELAXER-- Allergy Intermediate SVT-PAT Uncoded 11/17/23 18:11 EPISODE AFTER TAKING Review of Systems Review of Systems: CONSTITUTIONAL: Denies body aches, fever, chills, or sweats. EYES: Denies visual changes, redness, or discharge. ENT: Denies rhinorrhea, congestion, sore throat, or otalgia. CARDIOVASCULAR: Denies chest pain, palpitations, or edema. RESPIRATORY: Denies cough or dyspnea. GASTROINTESTINAL: Denies abdominal pain, nausea, vomiting, or diarrhea. GENITOURINARY: Denies dysuria or hematuria. SKIN: Denies rash, itching, or wounds. MUSCULOSKELETAL: + right low back pain NEUROLOGIC: Denies headache, numbness, tingling, or weakness. PSYCH: Denies depression or anxiety. [facility] Past Medical History Medical History Asthma Chronic sinusitis GERD (gastroesophageal reflux disease) Hyperlipidemia, unspecified Hypothyroidism Obesity SVT (supraventricular tachycardia) (~09/29/23) Vitamin D deficiency, unspecified Surgical History Surgical History H/O arthroscopic knee surgery R ACL & meniscur tear 10/12/2003 debridement 2008 R revision ACL reconstruction 02/04/2009 History of adrenal surgery [place] 01/08/2021 laparoscopic removal of adrenal mass History of sinus surgery 10/17/2009 image guided bilateral maxillary antrostomy, anterior ethmoid ectomy, frontal sinusotomy, inferior turbinate resection submucosally without fracture, resection of nasopharyngeal cyst 11/28/2021 History of tonsillectomy 1978 Hx of LASIK 05/2004 Family History Family History Father Diabetes mellitus Heart disease Thyroid disorder Mother Diabetes mellitus Heart disease TIA (transient ischemic attack) Other Depression Grandparent Alcoholism Grandparent Diabetes mellitus Tongue cancer Heart disease Social History Social History Smoking packs per day: 1 Smoking cigarettes per day: 20.0 Years smoked: 33 Smoking pack-ye
== END 2023-11-17 18:46 | disposition home or self-care (01) ==
PROVIDERS: Emergency Provider Nurse Practitioner; PCP Physician Assistant
DX: M54.6 Pain in thoracic spine (principal); Z87.891 Personal history of nicotine dependence; J45.909 Unspecified asthma, uncomplicated; K21.9 Gastro-esophageal reflux disease without esophagitis; E78.5 Hyperlipidemia, unspecified; E03.9 Hypothyroidism, unspecified; E66.9 Obesity, unspecified; Z68.30 Body mass index [BMI] 30.0-30.9, adult; E55.9 Vitamin D deficiency, unspecified
CPT/HCPCS: 81003; 87086; 99213; G0463

== ENCOUNTER 2024-06-07 10:10 | Outpatient (CLI) | payer OTHER, SELFPAY ==
--- NOTE | ~2024-06-07 | CT_ITS ---
CT Scan of the Chest without Contrast: Clinical Indication: Lung cancer screening, nicotine dependence Technique: Contiguous sections were acquired throughout the chest without intravenous contrast. Dose reduction technique was used on this scan by utilizing automated exposure control and iterative recon struction technique. The dose-length product (DLP) was 156.59 mGy-cm. COMPARISON: 05/20/2023 Findings: There is no evidence of any significant mediastinal, hilar or axillary lymphadenopathy. The mediastin al soft tissues appear normal. There is no evidence of pleural or pericardial effusion. The lungs are clear. No pulmonary nodules or infiltrates are noted. Images through the upper abdomen reveal no abnormalities. Impression: Lung RADS 1: Negative. 12 month follow-up screening CT advised. Reviewed, dictated and finalized at location . Impression: Lung RADS 1: Negative. 12 month follow-up screening CT advised.
== END 2024-06-07 10:11 | disposition home or self-care (01) ==
LOC: ANHIMG 10:10
PROVIDERS: PCP Family Medicine; Visit Provider Physician Assistant
DX: Z12.2 Encounter for screening for malignant neoplasm of respiratory organs (principal); Z87.891 Personal history of nicotine dependence
CPT/HCPCS: 71271

== ENCOUNTER 2025-05-23 07:19 | Outpatient (CLI) | payer OTHER, SELFPAY ==
--- OUTSIDE RECORDS SUMMARY | 2025-05-23 07:26 | XMS_ITS ---
Author Organization [facility] ([address]) Address [address] [place] [address] Care Team Providers Care Linen Room Houseperson Name Role Phone Ej Perkins [phone] REASON FOR VISIT [facility], interested in peptide therapy, on Tirzepatide, no side effects, felt no appetite suppression, Desired weight loss: 35 lbs, +2 lbs since last visit, - .8 lbs total, No history MTC or MEN2 or pancreatitis, Concerned about future DM and OA Medications Medication SIG (Take, Route, Frequency, Duration) Notes Start Date End Date Status Pulmicort 0.5 MG/2ML 2 mL by nebulizer 2 times a day Active Xyzal Allergy 24HR 5 MG 1 tab(s) orally once a day (in the evening) Active Vitamin D (Ergocalciferol) 1.25 MG (44510 UT) 1 cap(s) orally once a week Active Verapamil HCl ER 240 MG 1 tab(s) orally once a day (in the morning) Active Levothyroxine Sodium 88 MCG 1 tab(s) orally once a day A ctive Estradiol 0.1 MG/GM as directed intravag inally 3 times a week Active Ibuprofen 200 MG 1 cap(s) orally ever y 6 hours Active Vital Signs Height 65.7 in 04/18/2024 Weight 199 lbs 04/18/2024 BMI 32.41 kg/m2 04/18/2024 Encounters Encounter Location Date Provider Diagnosis [facility] ([address]) [address] [place] [address] 04/18/2024 Ej Perkins Morbid (severe) obesity due to excess calories E66.01 ; Chronic fatigue, unspecified R53.82 ; Other fatigue R53.83 and Other malaise R53.81 Assessments Encounter Date Diagnosis (ICD Code) Assessment Notes Treatment Notes Treatment Clinical Notes Section Notes 04/18/2024 Morbid (severe) obesity due to excess calories (ICD-10 - E66.01) 04/18/2024 Chronic fatigue, unspecified (ICD-10 - R53.82) 04/18/2024 Other fatigue (ICD-10 - R53.83) 04/18/2024 Other malaise (ICD-10 - R53.81) Plan Of Treatment Next Appt Details Follow Up: 1 Week, Reason: G LP-1 Agonist Administration Procedure Notes * Category Sub-Category Detail Notes Quell: Weight Management tirzepatide Indication: weig ht loss Concentration: 10 mg/mL Volume Administered: 0.4 mL Dose Administered: 4 mg Route: SQ Location: Left abdomen Frequency: weekly Lot Number/Expiration: Medication Source: [facility] Adverse Reaction: None Quell: Aesthetics and Wellne ss Injection Treatment Lipo Injection(s) Lipo-B (IM): 1 mL Left Deltoid Progress Notes * MENDY WinstoninDOB:1970 (55 yo F)Acc No.[id number]:04/18/2024 Weight Loss Patient: Carol ROSAS Provider: Lavern Perkins MD :1970 A ge:54 Y S ex:Female Date:04/18/2024 Address:[address] [place], [place] [id number] Subjective: * Chief Complaints: * 1 . [facility], interested in peptide therapy, on Tirzepatide, no side effects, felt no appetite suppression. 2. Desired weight loss: 35 lbs, +2 lbs since last visit, - .8 lbs total. 3. No history MTC or MEN2 or pancreatitis. 4. Concerned about future DM and OA. * Medical History: * Medications: T aking Ibuprofen 200 MG Capsule 1 cap(s) orally every 6 hours , Taking Estradiol 0.1 MG/GM Cream as directed intravaginally 3 times a week , Taking Vitamin D (Ergocalciferol) 1.25 MG (29170 UT) Capsule 1 cap(s) orally once a week , Taking Xyzal Allergy 24HR 5 MG Tablet 1 tab(s) orally once a day (in the evening) , Taking Pulmicort 0.5 MG/2ML Suspension 2 mL by nebulizer 2 times a day , Taking Levothyroxine Sodium 88 MCG Tablet 1 tab(s) orally once a day , Taking Verapamil HCl ER 240 MG Tablet Extended Release 1 tab(s) orally once a day (in the morning) Objective: * Vitals: H t: 65.7 in, Wt: 199 lbs, BMI:32.41Index. Assessment: * Assessment: 1. M orbid (severe) obesity due to excess calories - E66.01 (Primary) 2 . C hronic fatigue, unspecified - R53.82 3 . O ther fatigue - R53.83 ?4. O ther malaise - R53.81 Plan: * Treatment: * Procedures: Q uell: Aesthetics and Wellness Injection Treatment: Lipo Injection(s) L ipo-B (IM) 1 mL Left Deltoid Q uell: Weight Management: tirzepatide I ndication w eight loss C oncentration 1 0 mg/mL V olume Administered 0 .4 mL D ose Administered 4 mg R oute S Q L ocation L eft abdomen F requency w eekly L ot Number/Expiration 0 -2024 M edication Source [facility] A dverse Reaction N one * Follow Up: 1 Week (Reason: GLP-1 Agonist Administration) * Billing Information: * Visit Code: * Procedure Codes: * Electronic signature of Cassandra Perkins MD, FAAAAI on 05/23/2025 at 07:26 AM CDT Sign off status: Pending * Provider: Lavern Perkins MD Date: 0 04/18/2024 Generated for Libertyi maddy/Antonia/eTjuansmitting on: 05/23/2025 07:26 AM CDT
--- OUTSIDE RECORDS SUMMARY | 2025-05-23 07:26 | XMS_ITS | Encounter Summary ---
Author Organization [facility] Address [address] [place] [address] Care Team Providers Care Sustainability Project Coordinator Name Role Phone José Miguel Hankins MD Primary Care Provider [phone] Reason for Referral * Diagnostic Imaging (Routine) - Closed Specialty Diagnoses / Procedures Referred By Contac t Referred To Contact Diagnoses Abnormal mammogram Procedures US Guided Breast Biopsy Left Dheeraj Camilo MD [address] [place] [address] Phone: tel: fax: [facility] Referral ID Status Reason Start Date Expiration Date Visits Re quested Visits Authorized [id number] Closed 05/22/2025 06/22/2025 1 1 Reason for Visit * Diagnostic Imaging (Routine) - Closed Specialty Diagnoses / Procedures Referred By Contac t Referred To Contact Diagnoses Abnormal mammogram Procedures US Guided Breast Biopsy Left Dheeraj Camilo MD [address] [address] Phone: tel: fax: [facility] Referral ID Status Reason Start Date Expiration Date Visits Re quested Visits Authorized [id number] Closed 05/22/2025 06/22/2025 1 1 Encounter Details Date Type Department Care Team (Latest Contact Info) Description 05/22/2025 7:08 AM CDT - 05/22/2025 11:59 PM CDT Hospital Encounter [facility] [address] [place] [address] [place] [address] Abnormal mammogram Discharge Disposition: Discharge to home or self care Social History Tobacco Use Types Packs/Day Years Used Date Smoking Tobacco: Former Cigarettes 1 33 Q uit: 12/31/2019 Smokeless Tobacco: Never Comments:Smoking History Pac ks/day: 1.5 Packs Alcohol Use Standard Drinks/Week Comments Yes 0 (1 standard drink = 0.6 oz pur e alcohol) AUDIT-C Answer Date Recorded Q1: How often do you have a drink containing alc ohol? 2-3 times a week 03/23/2025 Q2: How many drinks containi ng alcohol do you have on a typical day when you are drinking? 3 or 4 03/23/2025 Q3: How often do you have si x or more drinks on one occasion? Never 03/23/2025 Comments No Sex and Gender Information Value Date Recorded Sex Assigned at Not on file Legal Sex Female 9:18 AM ACQUISITIONS LIBRARIAN Gender Identity Female 01/29/2021 8:14 PM CDT Sexual Orientation Straight 01/29/2021 8: 14 PM CDT documented as of this encounter Discharge Instructions * Discharge Instructions* Viv Pate, [facility] - 05/22/2025 7:10 AM CDT Breast [facility] Outpatient Discharge Instructions Activity: Avoid exercise for 24 hours after biopsy. Do not lift objects heavier than 5-10 lbs for 24 hours after biopsy. Other instructions: Medication: Remain on your usual medications; check with your regualr doctor for any questions. You may take Tylenol (acetaminophen) 500mg, 2 tablest aevery 6 hours fr pain of needed (and no allergy exists). You should avoid using Aspirin (Excedrin), Ibuprofen (Motrin, Advil)or Aleve for 48 hours after thebiopsy. Other instructions Wound care: Wear your bra all day today, and consider sleeping in one tonight. You may take a bath or shower after on Tegaderm Dressing: Remove the outer dressing after you bath or shower. Don ot remove the steri strips. They will fall off in 5-10 days. Dermabond: Do not scratch, rub or pick at the wound adhesive. It will naturally fall off in 5-10 days. Avoid swimming pools, hot tubs, and tub soaks for 7 days after biopsy. Apply an ice pack to the biopsy site every 2 hours today (for 20 minutes each time) until bedtime. Do not place ice directly on the skin. You will experience some bruising. Special instructions: Please call the [facility] nurses at [phone] or the [facility] at [phone] (8am to 5 pm*) if you experience: Extreme redness, bruising, swelling, severe pain or unusual drainage at the biopsy site Fever of 101.5 F If there are any signs of bleeding, lie down and apply firm pressure for 20 minutes. If bleeding persists call the [facility] or your physician. * If it is after hours, a weekend or holiday, please call your breast surgeon or referring physician. Results: You should receive your biopsy results within 3 working days. If you have not been informed of yourresults after this time please call: The breast imaging nurse in the [facility] at [phone]. The breast surgeon's office at . The referring physicians office documented in this encounter Medications at Time of Discharge albuterol (PROAIR RESPICLICK) 90 mcg/actuation inhaler Inhale 2 puffs every 6 (six) hours as needed for wheezing budesonide (PULMICORT) 0.5 mg/2 mL nebulizer solution 01/14/2025 ergocalciferol (VITAMIN D) 50,000 unit capsuleIndications:Vi tamin D Deficiency Take 1 capsule (50,000 Units total) by mouth once a week Wednesday night estradioL (ESTRACE) 2 mg tablet 04/27/2024 ezetimibe (ZETIA) 10 mg tablet Take 1 tablet (10 mg total) by mouth daily 90 tablet 1 03/28/2025 03/28/20 ibuprofen (ADVIL,MOTRIN) 200 mg tab/cap 01/23/2021 levocetirizine (XYZAL) 5 mg tablet take 1 tablet by oral route every day in the evening 0 0 09/18/2015 levothyroxine (SYNTHROID) 88 mcg tablet Take 1 tablet by mouth once daily 90 tablet 3 04/20/2023 scopolamine 1 mg over 3 days patch 3 day APPLY 1 PATCH TOPICALLY TO THE SKIN EVERY 72 HOURS NEEDED FOR MOTION SICKNESS 05/31/2023 tirzepatide, weight loss, (Zepbound) 15 mg/0.5 mL pen injector Inject 0.5 mL (15 mg total) under the skin every 7 days 2 mL 3 03/23/2025 verapamiL (CALAN) 40 mg tabletIndications:Par oxysmal Supraventricular Tachycardia Take 1 tablet (40 mg total) by mouth daily as needed (palpitations) 10 tablet 3 10/11/2024 verapamil SR (CALAN SR) 240 mg CR tablet TAKE 1 TABLET EVERY MORNING 90 tablet 3 05/08/2025 documented as of this encounter Discharge Disposition Disposition Code Departure Means Destination Discharge to home or self care documented in this encounter Plan of Treatment Pending Results Name Type Priority Associated Diagnoses Date /Time Surgical pathology Pathology and Cytology Routine Abnormal mammogram 05/22/2025 7:52 AM CDT Scheduled Orders Name Type Priority Associated Diagnoses Order Schedule Surgical pathology Pathology and Cytology Routine Abnormal mammogram Release Upon Ordering for 1 Occurrences starting 05/22/2025 documented as of this encounter Procedures Procedure Name Priority Date/Time Associated Diagnosis Comments US GUIDED BREAST BIOPSY LEFT Schedule Routine, Read Routine (OP Routine) 05/22/2025 7:59 AM CDT Abnormal mammogram documented in this encounter Results * US Guided Breast Biopsy Left (05/22/2025 7:59 AM CDT) Anatomical Region Laterality Modality Breast Left Ultrasound 05/22/2025 11:0 0 AM CDT Impressions 05/22/2025 1:50 PM CDT Successful core needle biopsy of the LEFT breast. Pathology is pending. ASSESSMENT: Post Procedure Mammograms for Marker Placement Dictated by: Annmarie Chaves MD The radiology attending physician has personally reviewed this study, and had reviewed and/or edited this written report and agrees with it. Electronically signed by: Daya Edgar M.D. Narrative 05/22/2025 1:50 PM CDT EXAMINATION: LEFT BREAST VACUUM-ASSISTED CORE BIOPSY UTILIZING SONOGRAPHIC GUIDANCE, PLACEMENT OF A BIOPSY TISSUE MARKER CLIP, AND LEFT FULL FIELD DIGITAL MAMMOGRAM WITH DIGITAL BREAST TOMOSYNTHESIS HISTORY: Abnormal breast imaging. 55 year old female with BI-RADS 4A mass in the LEFT breast 1:30 8 cm from the nipple. Ultrasound guided core needle biopsy is requested to evaluate for malignancy. COMPARISON: Diagnostic mammogram and left breast ultrasound 05/14/2025 PROCEDURE AND FINDINGS: The risks and potential benefits of the procedures were discussed with the patient and written informed consent was obtained. After sterile preparation of the skin, 1% lidocaine and 2% lidocaine with epinephrine were utilized for local anesthesia. A small skin incision was made with a #11 scalpel blade. A 14G vacuum-assisted biopsy needle was then advanced through the skin incision to the edge of the lesion of interest at the left breast 1:30 position 8 cm from the nipple from a lateral approach utilizing sonographic guidance. A total of 3 tissue cores were obtained through the lesion. An UltraClip ribbon-shaped tissue marker clip was then placed at the biopsy site. Hemostasis was achieved. Dermabond and an ice pack were applied. There was no evidence of significant immediate complication. The patient was given verbal as well as written post procedural instructions prior to release from the department. The tissue cores were submitted to surgical pathology in formalin for histologic analysis. A two-view LEFT digital mammogram, including digital breast tomosynthesis, obtained post procedure demonstrates that the tissue marker clip is in expected position. The attending radiologist, Dr. Daya Edgar M.D., was present throughout the entire procedure. Dr. Annmarie Chaves (breast imaging fellow) and Dr. Calos Baumann (diagnostic vice president) also participated in this examination. Procedure Note Daya Edgar MD - 05/22/2025 EXAMINATION: LEFT BREAST VACUUM-ASSISTED CORE BIOPSY UTILIZING SONOGRAPHIC GUIDANCE, PLACEMENT OF A BIOPSY TISSUE MARKER CLIP, AND LEFT FULL FIELD DIGITAL MAMMOGRAM WITH DIGITAL BREAST TOMOSYNTHESIS HISTORY: Abnormal breast imaging. 55 year old female with BI-RADS 4A mass in the LEFT breast 1:30 8 cm from the nipple. Ultrasound guided core needle biopsy is requested to evaluate for malignancy. COMPARISON: Diagnostic mammogram and left breast ultrasound 05/14/2025 PROCEDURE AND FINDINGS: The risks and potential benefits of the procedures were discussed with the patient and written informed consent was obtained. After sterile preparation of the skin, 1% lidocaine and 2% lidocaine with epinephrine were utilized for local anesthesia. A small skin incision was made with a #11 scalpel blade. A 14G vacuum-assisted biopsy needle was then advanced through the skin incision to the edge of the lesion of interest at the left breast 1:30 position 8 cm from the nipple from a lateral approach utilizing sonographic guidance. A total of 3 tissue cores were obtained through the lesion. An UltraClip ribbon-shaped tissue marker clip was then placed at the biopsy site. Hemostasis was achieved. Dermabond and an ice pack were applied. There was no evidence of significant immediate complication. The patient was given verbal as well as written post procedural instructions prior to release from the department. The tissue cores were submitted to surgical pathology in formalin for histologic analysis. A two-view LEFT digital mammogram, including digital breast tomosynthesis, obtained post procedure demonstrates that the tissue marker clip is in expected position. The attending radiologist, Dr. Daya Edgar M.D., was present throughout the entire procedure. Dr. Annmarie Chaves (breast imaging fellow) and Dr. Calos Baumann (diagnostic vice president) also participated in this examination. IMPRESSION: Successful core needle biopsy of the LEFT breast. Pathology is pending. ASSESSMENT: Post Procedure Mammograms for Marker Placement Dictated by: Annmarie Chaves MD The radiology attending physician has personally reviewed this study, and had reviewed and/or edited this written report and agrees with it. Electronically signed by: Daya Edgar M.D. Dheeraj Huerta MD IMG MAMMO PROCEDURES Nicol l Result documented in this encounter Visit Diagnoses Diagnosis Abnormal mammogram Abnormal mammogram, unspecified documented in this encounter Administered Medications Inactive Administered Medications - up to 3 most recent administrations Medication Order MAR Action Action Date Dose Rate Site lidocaine (PF) (XYLOCAINE) 10 mg/mL (1 %) preservative free injection As needed, Starting on Wed05/22/25 at 0743, Intra-Procedure (IR), Indications: Administration of Local AnesthesiaIndications:Administ ration of Local Anesthesia Given 05/22/2025 7:43 AM CDT 5 mL Left Breast lidocaine-EPINEPHrine (XYLOCAINE with EPI) 2 %-1:200,000 preservative free injection As needed, Starting on Wed05/22/25 at 0744, Intra-Op, Indications: Administration of Local AnesthesiaIndications:Administ ration of Local Anesthesia Given 05/22/2025 7:44 AM CDT 10 mL Left Breast documented in this encounter Care Teams Sustainability Project Coordinator Relationship Specialty Start Date End Date José Miguel Hankins MD [address] [place] [id number] PCP - General Family Medicine 05/17/23 documented as of this encounter
--- OUTSIDE RECORDS SUMMARY | 2025-05-23 07:26 | XMS_ITS | Encounter Summary ---
Author Organization formerly [facility] Address [address] [place] [address] Care Team Providers Care Mobile Paint Specialist Name Role Phone José Miguel Hankins MD Primary Care Provider [phone] Reason for Referral * Diagnostic Imaging (Routine) - Closed Specialty Diagnoses / Procedures Referred By Contac t Referred To Contact Diagnoses Abnormal mammogram Procedures Yves Post Clip Placement Left Dheeraj Camilo MD [address] [place] [address] Phone: tel: fax: [facility] Referral ID Status Reason Start Date Expiration Date Visits Re quested Visits Authorized [id number] Closed 05/22/2025 06/21/2026 1 1 Reason for Visit * Diagnostic Imaging (Routine) - Closed Specialty Diagnoses / Procedures Referred By Contac t Referred To Contact Diagnoses Abnormal mammogram Procedures Yves Post Clip Placement Left Dheeraj Camilo MD [address] [address] Phone: tel: fax: [facility] Referral ID Status Reason Start Date Expiration Date Visits Re quested Visits Authorized [id number] Closed 05/22/2025 06/21/2026 1 1 Encounter Details Date Type Department Care Team (Latest Contact Info) Description 05/22/2025 7:58 AM CDT - 05/22/2025 11:59 PM CDT Hospital Encounter [facility] [address] [place] [address] Abnormal mammogram Discharge Disposition: Discharge to home [...] on file Legal Sex Female 9:18 AM LORRY WEIGHER Gender Identity Female 01/29/2021 8:14 PM CDT Sexual Orientation Straight 01/29/2021 8: 14 PM CDT documented as of this encounter Medications at Time of Discharge [...] documented in this encounter Plan of Treatment Not on file documented as of this encounter Procedures Procedure Name Priority Date/Time Associated Diagnosis Comments YVES POST CLIP PLACEMENT LEFT Schedule Routine, Read Routine (OP Routine) 05/22/2025 8:29 AM CDT Abnormal mammogram documented in this encounter Results * Yves Post Clip Placement Left (05/22/2025 8:29 AM CDT) Anatomical Region Laterality Modality Breast Left Mammography 05/22/2025 11:0 0 AM CDT Impressions 05/22/2025 [...] fellow) and Dr. Calos Baumann (diagnostic vice president of talent management) also participated in this examination. Procedure Note [...] fellow) and Dr. Calos Baumann (diagnostic vice president of talent management) also participated in this examination. IMPRESSION: Successful core needle biopsy of the LEFT breast. Pathology is pending. ASSESSMENT: Post Procedure Mammograms for Marker Placement Dictated by: Annmarie Chaves MD The radiology attending physician has personally reviewed this study, and had reviewed and/or edited this written report and agrees with it. Electronically signed by: Daya Edgar M.D. us Dheeraj Huerta MD IMG MAMMO PROCEDURES Nicol l Result documented in this encounter Visit Diagnoses Diagnosis Abnormal mammogram Abnormal mammogram, unspecified documented in this encounter Care Teams Mobile Paint Specialist Relationship Specialty Start Date End Date José Miguel Hankins MD [address] [place] [id number] PCP - General Family Medicine 05/17/23 documented as of this encounter
--- OUTSIDE RECORDS SUMMARY | 2025-05-23 07:26 | XMS_ITS | Data Portability ---
Author Organization [employer], [facility] Address [address] [address] Assessment No assessment recorded. Plan of Treatment Reminders Order Date Submit Date Provider Last Modified By Organization Details Last Modified Time Details Appointments None recorded. Lab None recorded. Referral None recorded. Procedures None recorded. Surgeries None recorded. Imaging XR, knee - WEIGHT BEARING AP, PA FLEX AND LATERAL VIEWS WITH A STANDARD [place] 2024 025 [email or web address] Not available 16:26:36 Medication Orders None recorded. Patient TargetsNo targets recorded. Patient InstructionsNo instructions recorded. Reason for Referral None Reported. Medical Equipment None Reported. Allergies Allergen ID Allergen Name Allergen Category Reaction Reaction Severity Criticality Documentation Date Start Date Code Code System Note Provider Name and Address Organization Details Recorded Time 93037 Product containin g penicilli n (product) medicatio n Not available Not available Not available 04/24/2025 87283 8001 SNOMED Kaylene Koenig [employer] [facility] 14:29:01 37865 tizanidin e medicatio n Not available Not available Not available 04/24/2025 99406 RxNorm Kaylene solorzano [employer] [facility] 14:29:12 Medications Name Sig Start Date Stop Date Status Note LastModified by Organization Details LastModified Time levothyroxi ne 88 mcg tablet TAKE 1 TABLET BY MOUTH ONCE DAILY active Not Available Not Available No t Available estradiol 2 mg tablet TAKE 1 TABLET BY MOUTH EVERY DAY active Not Available Not Available No t Available levofloxaci n 500 mg tablet TAKE 1 TABLET BY MOUTH DAILY 04/19 completed Not Available Not Available Not Available scopolamine 1 mg over 3 days transdermal patch APPLY 1 PATCH TOPICALLY TO THE SKIN EVERY 72 HOURS NEEDED FOR MOTION SICKNESS active Not Available Not Available No t Available Zepbound 10 mg/0.5 mL subcutaneou s pen injector ADMINISTE R 10 MG UNDER THE SKIN EVERY 7 DAYS active Not Available Not Available No t Available Zepbound 5 mg/0.5 mL subcutaneou s pen injector ADMINISTE R 5 MG UNDER THE SKIN EVERY 7 DAYS. START AFTER TAKING 2.5 MG WEEKLY FOR 4 WEEKS active Not Available Not Available No t Available Zepbound 15 mg/0.5 mL subcutaneou s pen injector ADMINISTE R 15 MG UNDER THE SKIN EVERY 7 DAYS active Not Available Not Available No t Available Zepbound 12.5 mg/0.5 mL subcutaneou s pen injector ADMINISTE R 12.5 MG UNDER THE SKIN EVERY 7 DAYS active Not Available Not Available No t Available Zepbound 7.5 mg/0.5 mL subcutaneou s pen injector INJECT 7.5 MG UNDER THE SKIN ONCE WEEKLY. active Not Available Not Available No t Available Vitals Date Recorded Body height Body weight Heart rate Body mass index (BMI) Systolic And Diastolic Provider Name and Address Organization Details Last Updated DateTime 04/24/2025 170.18 cm 78733.63 g 73 /min 28.2 kg/m2 115/68 mm[Hg] Kaylene Koenig [facility], [facility] 04/24/2025 14:28:42 Social History None recorded. Functional Status None recorded. Mental Status None recorded. Family History Nothing Reported. Medical History No medical history recorded. Gynecological HistoryNo gynecological history recorded. Obstetrics History GPAL:G 0 P 0 0 0 0 Past Encounters Encounter ID Performer Location Encounter Start Date Encounter Closed Date Diagnosis/Indication Diagnosis SNOMED-CT Code Diagnosis ICD10 Code Diagnosis Note [id number] ANY MARTIN PA-C [facility] [address] [facility] ,[address] [place] [phone] 04/24/2025 13:58:36 04/24/2025 15:13:15 Knee pain 35156089 M25.569 Pain of ri ght knee joint 5491940703 02985 M25.561 Health Concerns Section Related Observation LastModified by Organization Detai ls LastModified Time None Recorded Concern Status LastModified by Organization Details LastModified Time None Recorded Advance Directives Directive None Recorded Payers Insurance Date Sequence Insurance Name Policy Number Policy Sauer Covered Member ID Sauer Member ID Guarantor Name 04/25/2025 2 [facility] () Carol Madera [id number] Carol Madera 04/25/2025 1 [facility] [id number] Carol Madera [id number] Carol Madera OBGyn Episode No OBEpisode recorded.
--- OUTSIDE RECORDS SUMMARY | 2025-05-23 07:27 | XMS_ITS | Encounter Summary ---
Author Organization [facility] Healthcare Address [address] [place] [address] Care Team Providers Care Counseling Aide Name Role Phone José Miguel Hankins MD Primary Care Provider [phone] Encounter Details Date Type Department Care Team (Late st Contact Info) Description 04/10/2025 Results Follow-Up [facility] Medical Group Cardiology [address] [place] [address] Katerina Odell MD [address] [place] [address] DR B[place] [place] [id number] Lipid panel Social History Tobacco Use Types Packs/Day Years [...] on file Legal Sex Female 9:18 AM [employer] Gender Identity Female 01/29/2021 8:14 PM CDT Sexual Orientation Straight 01/29/2021 8: 14 PM CDT documented as of this encounter Plan of Treatment Not on file documented as of this encounter Visit Diagnoses Not on filedocumented in this encounter Care Teams Counseling Aide Relationship Specialty Start Date End Date José Miguel Hankins MD [address] [place] [phone] PCP - General Family Medicine 05/17/23 documented as of this encounter
--- OUTSIDE RECORDS SUMMARY | 2025-05-23 07:27 | XMS_ITS | Referral Summary ---
Author Organization [facility] [address] Address [address] [place] [address] Care Team Providers Care Personal Care Aide Name Role Phone José Miguel Hankins MD Primary Care Provider Encounters Date Type Department Care Team Description 05/22/2025 7:58 AM CDT - 05/22/2025 11:59 PM CDT Hospital Encounter [facility] ([facility]) [address] [place] [id number] Abnormal mammogram Discharge Disposition: Discharge to home or self care 05/22/2025 7:08 AM CDT - 05/22/2025 11:59 PM CDT Hospital Encounter [facility] ([facility]) [address] [place] [id number] Abnormal mammogram Discharge Disposition: Discharge to home or self care 05/14/2025 Orders Only [facility] Information Management [address] [place] [address] Scanning, Provider 05/14/2025 7:58 AM CDT - 05/14/2025 11:59 PM CDT Hospital Encounter [facility] ([facility]) [address] [place] [id number] Retraction of nipple; Encounter for screening mammogram for malignant neoplasm of breast Discharge Disposition: Discharge to home or self care 05/14/2025 7:58 AM CDT - 05/14/2025 11:59 PM CDT Hospital Encounter [facility] ([facility]) [address] [place] [address] Retraction of nipple; Encounter for screening mammogram for malignant neoplasm of breast Discharge Disposition: Discharge to home or self care 05/03/2025 Results Follow-Up [facility] Metabolic Weight Management [facility] Medical Office Building [address] [place] [phone] Carol Mcdaniel PA Comprehensive metabolic panel, Hemoglobin A1c, Lipid panel, Additional followed-up results: 4 04/10/2025 Results Follow-Up [facility] [address] [place] [id number] Katerina Odell MD Lipid panel 03/23/2025 1:20 PM CDT Office Visit [facility] Metabolic Weight Management [facility] Medical Office [address] [place] [phone] Rachel Mota MD Class 1 obesity due to excess calories without serious comorbidity in adult, unspecified BMI (Primary Dx); Weight loss counseling, encounter for; Metabolic and nutritional disorder; Fatigue, unspecified type; 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; Low vitamin D level from Last 3 Months Allergies Active Allergy Reactions Criticality Noted Date Comments Phentermine Palpitations Low 08/10/2024 In setting of SVT Dexamethasone Stomach upset,Nausea & Vomiting Low 12/25/2020 Other Palpitations Low 06/06/2019 Muscle relaxer; STV Penicillins Hives,Swelling,Redness Medium Medications levocetirizine (XYZAL) 5 mg tablet take 1 tablet by oral route every day in the evening 0 0 09/18/ 015 Active Additional Information Patient taking differently:5 mgoral Every morning, Indications: allergies, Informant: Self, Reported on 03/23/2025 ergocalciferol (VITAMIN D) 50,000 unit capsuleIndications: Vitamin D Deficiency Take 1 capsule (50,000 Units total) by mouth once a week Wednesday night Active albuterol (PROAIR RESPICLICK) 90 mcg/actuation inhaler Inhale 2 puffs every 6 (six) hours as needed for wheezing Active ibuprofen (ADVIL,MOTRIN) 200 mg tab/cap 021 Active levothyroxine (SYNTHROID) 88 mcg tablet Take 1 tablet by mouth once daily 90 tablet 3 023 Active scopolamine 1 mg over 3 days patch 3 day APPLY 1 PATCH TOPICALLY TO THE SKIN EVERY 72 HOURS NEEDED FOR MOTION SICKNESS 023 Active verapamiL (CALAN) 40 mg tabletIndications:P aroxysmal Supraventricular Tachycardia Take 1 tablet (40 mg total) by mouth daily as needed (palpitations) 10 tablet 3 024 Active budesonide (PULMICORT) 0.5 mg/2 mL nebulizer solution 025 Active estradioL (ESTRACE) 2 mg tablet 024 Active tirzepatide, weight loss, (Zepbound) 15 mg/0.5 mL pen injector Inject 0.5 mL (15 mg total) under the skin every 7 days 2 mL 3 025 Active ezetimibe (ZETIA) 10 mg tablet Take 1 tablet (10 mg total) by mouth daily 90 tablet 1 025 2025 Active verapamil SR (CALAN SR) 240 mg CR tablet TAKE 1 TABLET EVERY MORNING 90 tablet 3 025 Active verapamil SR (CALAN SR) 240 mg CR tablet TAKE 1 TABLET EVERY MORNING 90 tablet 3 024 2024 Discontinued Active Problems Problem Noted Date Diagnosed Date Fatigue 04/07/2025 Acute pain of left knee 01/25/2024 Osteoarthritis of left patellofemoral joint 12/31 S/P ACL reconstruction 06/09/2022 Former smoker 09/24/2021 Vertigo 09/24/2021 Chronic pain of right knee 04/22/2021 Post-traumatic osteoarthritis of right knee 04/02 Effusion of right knee 04/22/2021 Weight loss counseling, encounter for 04/01/2021 Assessment & Plan (06/24/2023 6:48 PM CDT): Recalculated and reviewed calorie restriction based on BMR as previously detailed.Asked to try to track consistently with smartphone phuong for at least 1 week to help identify calorie/carb/protein intake. Reviewed recommendation/goal of >/= 150 minutes/week moderate-intensity aerobic exercise. Assessment & Plan (03/25/2023 3:07 PM CDT): Recalculated and reviewed calorie restriction based on BMR as previously detailed. Reviewed recommendation/goal of >/= 150 minutes/week moderate-intensity aerobic exercise. Discussed okay to not track food/calories but that if they start to struggle or are not losing weight this is a useful tool to help refocus. Assessment & Plan (11/19/2022 2:57 PM [employer] RECOVERY WORKER): Reviewed calorie restriction based on BMR as previously detailed. Reviewed recommendation/goal of >/= 150 minutes/week moderate-intensity aerobic exercise. Asked to keep detailed food diary for at least 1 week and bring to next visit and/or continue tracking on phone. If weight is not coming down with 16- 1700 kcal/day, try reducing to 12-1400 kcal/day. Assessment & Plan (06/04/2022 10:43 AM CDT): Recalculated and reviewed calorie restriction based on BMR as previously detailed. Reviewed recommendation/goal of >/= 150 minutes/week moderate-intensity aerobic exercise. Asked to keep detailed food diary for at least 1 week and bring to next visit and/or continue tracking on phone. Assessment & Plan (12/15/2021 3:21 PM ACETONE RECOVERY WORKER): Reviewed calorie restriction based on BMR as previously detailed. Reviewed recommendation/goal of >/= 150 minutes/week moderate-intensity aerobic exercise. Asked to keep detailed food diary for at least 1 week and bring to next visit and/or continue tracking on phone. Assessment & Plan (08/25/2021 4:03 PM CDT): Reviewed calorie restriction based on BMR as previously detailed. Reviewed recommendation/goal of >/= 150 minutes/week moderate-intensity aerobic exercise. Assessment & Plan (06/16/2021 10:51 PM CDT): Reviewed calorie restriction based on BMR as previously detailed. Reviewed recommendation/goal of >/= 150 minutes/week moderate-intensity aerobic exercise. Asked to keep detailed food diary for at least 1 week and bring to next visit and/or continue tracking on phone. Assessment & Plan (04/01/2021 11:26 AM CDT): Discussed that significant health benefits/risk reduction may be seen with even 5% weight loss. Discussed that weight loss will require calorie deficit. Calculated basal metabolic rate and estimated total energy expenditure; discussed 500-1000 kcal/day deficit to lose 1-2 lb per week. Asked to keep detailed food diary for at least 1 week and bring to next visit. Discussed relatively small, although significant, role of exercise in weight loss; greater importance in weight maintenance as shown in Look Ahead study and National Weight Control Registry. Discussed recommendation/goal for 150 minutes per week moderate-intensity aerobic exercise. Metabolic and nutritional disorder 04/01/2021 Overview (11/19/2022): H/o GDM Assessment & Plan (06/24/2023 6:48 PM CDT): Reviewed interim labs. Continue low-carb (<150 g/day), low-glycemic diet. Assessment & Plan (03/25/2023 3:08 PM CDT): Reviewed most recent labs available. Continue low-carb (<150 g/day), low- glycemic diet. Assessment & Plan (11/19/2022 2:57 PM ACETONE RECOVERY WORKER): Labs. Reviewed most recent labs available. Continue low-carb (<150 g/day), low-glycemic diet. Assessment & Plan (06/04/2022 10:46 AM CDT): Reviewed interim labs. Continue low-carb (<150 g/day), low-glycemic diet. Continue GLP-1 RA. Assessment & Plan (12/15/2021 3:42 PM ACET[employer] RECOVERY WORKER): She will ask PCP to send recent labs. Will check CMP when she has labs for endocrine in March. Continue low-carb (<150 g/day), low-glycemic diet. Continue GLP-1 RA. Assessment & Plan (08/25/2021 4:04 PM CDT): Labs. Check CMP on semaglutide -- she would like to have done at her PCP's office. Continue low-carb (<150 g/day), low-glycemic diet. Continue semaglutide -- will see if Wegovy covered by insurance (previousy told it was covered, but not available.) Assessment & Plan (06/16/2021 10:51 PM CDT): Continue low-carb (<150 g/day), low-glycemic diet. Assessment & Plan (04/01/2021 12:15 PM CDT): Reviewed recent labs. Discussed increased risk for DM in setting of obesity, GDM and FHx DM. Discussed insulin resistance including effect on weight and risk for progression to diabetes. Recommended low-carb, low-glycemic diet; choose whole grains and avoid more highly processed carbohydrates. Discussed potential benefits of this w/r/t gut microbiome. Referred to ADA and [employer] websites for additional information on topics including glycemic index/carbohydrate choices, protein sources. Reviewed importance of adequate protein intake of 1-1.2 g/kg IBW/day. Adrenal mass, left 01/09/2021 Overview (02/03/2021): Pathology Diagnosis: 01/08/2021 Adrenal gland, left, excision - Adrenal cortical adenoma x2 (4.3 cm and 1.3 cm) Assessment & Plan (03/27/2022 8:36 PM CDT): S/p resection Passed ACTH stim test Not on steroids Assessment & Plan (02/03/2021 2:56 PM CDT): Advised to monitor symptoms, will consider low dose HCT 10 mg daily as a trial Advised to hold prior to future testing, also to update me in 1-2 week if no difference noticed Plan ACTH stim test on return in March Adrenal nodule 12/25/2020 Assessment & Plan (03/26/2023 1:26 PM CDT): S/p resection Passed ACTH stim test Not on steroids No additional follow up is necessary Assessment & Plan (03/25/2021 3:55 PM CDT): S/p resection Passed ACTH stim test No need for hydrocortisone Assessment & Plan (12/25/2020 1:18 PM AC[employer]ONE RECOVERY WORKER): Patient brought her images discs with her. We as dose to be uploaded and read by our radiology colleagues; MRI: In the inferior aspect of the left adrenal gland, there is a 4.3 cm lesion that is intermediate T1 and T2 signal intensity, mildly enhances, and shows intra-Voxel and macroscopic fat, consistent with adrenal adenoma Will complete hormonal workup for this adrenal nodule. Mainly rule out autonomous cortisol secretion. Lower suspicion for pheochromocytoma or aldosterone secreting tumor. Low suspicion for adrenal cortical cancer Will obtain labs today (non fasting). Obtain dexamethasone suppression test locally Given symptoms in size of the adrenal nodule, patient is a candidate for surgically resecting this nodule. Patient in favor of that She is seeing Dr. Diehl today as well to discuss surgical resection Low vitamin D level 12/25/2020 Assessment & Plan (03/23/2023 2:26 PM CDT): Follow up Vit D is WNL Assessment & Plan (11/19/2022 2:58 PM AC[employer] RECOVERY WORKER): Labs. Assessment & Plan (03/27/2022 8:33 PM CDT): History of low vitamin-D on replacement Assessment & Plan (03/25/2021 3:56 PM CDT): Continue on Vit D3 replacement daily Assessment & Plan (02/03/2021 2:55 PM CDT): History of low vitamin-D on replacement Last check in 12/2020 was normal at 42. 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 Assessment & Plan (11/23/2024 3:03 PM AC[employer] RECOVERY WORKER): Last TSH in good range. Assessment & Plan (03/26/2023 1:26 PM CDT): Continue current levothyroxine dose. TSH goal lower normal Assessment & Plan (03/25/2023 3:09 PM CDT): Last TSH in good range. Assessment & Plan (03/27/2022 8:41 PM CDT): Continue current levothyroxine dose. TSH goal normal Will plan follow up TFT in about 6 months as continues to lose weight and dose need to be adjusted Assessment & Plan (12/15/2021 3:44 PM AC[employer] RECOVERY WORKER): Last TSH in good range. Sees endocrine in March and will have repeat labs. Assessment & Plan (04/01/2021 12:14 PM CDT): Recent TSH/T4 in good range. Assessment & Plan (03/25/2021 3:54 PM CDT): On levothyroxine dose to 100 mcg every day OFF Cytomel TSH 0.39 Assessment & Plan (02/03/2021 2:38 PM CDT): Discussed maintaining levothyroxine only regimen and eliminate Cytomel. Will increase levothyroxine dose to 100 mcg every day and stop Cytomel TFT recheck in March/2021 Assessment & Plan (12/25/2020 1:01 PM AC[employer] RECOVERY WORKER): Will check thyroid function test. Discussed potentially maintaining levothyroxine only regimen and eliminate Cytomel. Patient in agreement Seasonal allergies 04/27/2017 History of peptic ulcer 04/27/2017 History of gestational diabetes 04/27/2017 Class 1 obesity in adult 04/08/2016 Overview (02/05/2017): Obesity (BMI 30-39.9) Assessment & Plan (06/24/2023 6:52 PM CDT): Obesity is unchanged over last three months, overall improved as BMI at 30.1 down from 34.96 from IV. Diet interventions: as noted. Resources provided in AVS. Regular aerobic exercise program discussed. Plan- Continue pharmacotherapy with semaglutide 2.4 mg weekly. Start zonisamide 25 mg daily, may increase dose by 25 mg at weekly intervals to total of 100mg as tolerated and if needed for improved appetite suppression. Reviewed that use of zonisamide for appetite is off label, but there are studies supporting a benefit in binge eating disorder and with weight loss in general. Continue diet/exercise interventions as discussed. Follow up with Dr. Mota in [] 1 month; [x] 2 months; [] 3 months; [] 6 months; [] Other: Assessment & Plan (03/26/2023 1:25 PM CDT): She is following with Dr. Mota this week Assessment & Plan (03/25/2023 3:09 PM CDT): Obesity is unchanged since last appointment, but overall improved.. Plan: Diet interventions: as noted.., Regular aerobic exercise program discussed. and Medication as prescribed.Continue Wegovy. Discussed possible use of zonisamide to help with cravings for sweets. Follow up in [] 1 month; [] 2 months; [x] 3 months; [] 6 months; [] Other: Assessment & Plan (11/19/2022 2:58 PM AC[employer] RECOVERY WORKER): Obesity is unchanged since last appointment, but overall improved.. Plan: Diet interventions: as noted.., Regular aerobic exercise program discussed. and Medication as prescribed. Continue Wegovy. Assessment & Plan (06/04/2022 10:46 AM CDT): Obesity is improving with treatment. Commended on weight loss to date and discussed anticipated health benefits/risk reduction with this degree of loss. Plan: Diet interventions: as noted.., Regular aerobic exercise program discussed. and medication as prescribed. Assessment & Plan (03/27/2022 8:34 PM CDT): Improving on treatment - following with Dr. Mota Assessment & Plan (12/15/2021 3:43 PM ACETONE RECOVERY WORKER): Obesity is improving with treatment. Commended on weight loss to date and discussed anticipated health benefits/risk reduction with this degree of loss. Diet interventions: as noted. Regular aerobic exercise program discussed. Pharmacotherapy as ordered. Assessment & Plan (08/25/2021 4:05 PM CDT): Obesity is improving. Diet interventions: as noted. Regular aerobic exercise program discussed. Pharmacotherapy as ordered. Assessment & Plan (06/16/2021 10:53 PM CDT): Obesity is unchanged. Diet interventions: as noted. Regular aerobic exercise program discussed. Pharmacotherapy as ordered. Discussed options and will start Wegovy. Discussed risks, benefits, alternatives, potential side effects. No personal or family history of MTC or MEN2. Reviewed dosing/titration; reviewed proper administration using demo pen; reviewed appropriate storage. Referred to websites for additional instructions/info/video. Assessment & Plan (04/01/2021 12:18 PM CDT): Obesity is unchanged. General weight loss/lifestyle modification strategies discussed (elicit support from others; identify saboteurs; non-food rewards, etc). Diet interventions: as noted. Informal exercise measures discussed, e.g. taking stairs instead of elevator. Regular aerobic exercise program discussed. Discussed restarting Saxenda after I have reviewed recent notes, labs. Assessment & Plan (03/25/2021 3:54 PM CDT): Will refer to weight management clinic Assessment & Plan (02/03/2021 2:54 PM CDT): Will refer to weight management clinic after she is recovered well and her HC and levothyroxine dose are adjusted Social History Tobacco Use Types Packs/Day Years Used Date Smoking Tobacco: Former Cigarettes 1 33 Q uit: 12/31/2019 Smokeless Tobacco: Never Tobacco Cessation:Counseling Given: Not Answered Comments:Smoking History Packs/day: 1.5 Packs Alcohol Use Standard Drinks/Week Comments [...] on file Legal Sex Female 9:18 AM AC[employer] RECOVERY WORKER Gender Identity Female 01/29/2021 8:14 PM CDT Sexual Orientation Straight 01/29/2021 8: 14 PM CDT Last Filed Vital Signs Vital Sign Reading Time Taken Comments Blood Pressure 115/70 03/23/2025 1:16 PM CDT Pulse 72 03/23/2025 1:16 PM CDT Temperature 36.9 C (98.5 F) 03/23/2025 1:16 PM CDT Respiratory Rate 14 11/20/2024 1:05 PM AC[employer] RECOVERY WORKER Oxygen Saturation 99% 03/23/2025 1:16 PM CDT Inhaled Oxygen Concentration - - Weight 82.2 kg (181 lb 3.2 oz) 03/23/2025 1:16 P M CDT Height 170.2 cm (5' 7) 03/23/2025 1:16 PM CDT Body Mass Index 28.38 03/23/2025 1:16 PM CDT Plan of Treatment Not on file Medical Devices Implanted Type Area Instructional Technology Specialist Device Identifier Shelf Expiration Date Model / Serial / Lot Bard Peripheral Vascular Ultraclip Bard 17ga 10cm 2 Trigger Permanent Ultrasound [id number] - [id number] Implanted:Qty: 1 on 05/22/2025 by Annmarie Chaves MD at [facility] Left: Breast Bard Peripheral Vascular [id number] / / Procedures Procedure Name Priority Date/Time Associated Diagnosis Comments YVES POST CLIP PLACEMENT LEFT Schedule Routine, Read Routine (OP Routine) 05/22/2025 8:29 AM CDT Abnormal mammogram US GUIDED BREAST BIOPSY LEFT Schedule Routine, Read Routine (OP Routine) 05/22/2025 7:59 AM CDT Abnormal mammogram US BREAST LEFT LIMITED Routine 05/14/2025 9:29 AM CDT Retraction of nipple Encounter for screening mammogram for malignant neoplasm of breast DIAGNOSTIC MAMMOGRAM BILATERAL W YVES Routine 05/14/2025 8:44 AM CDT Retraction of nipple Encounter for screening mammogram for malignant neoplasm of breast SCAN - OTHER ORDERS 05/14/2025 LIPID PANEL Routine 04/07/2025 9:45 AM CDT T3FREE Routine 04/07/2025 9:44 AM CDT THYROXINE (T4) FREE, DIRECT, S Routine 04/07/2025 9:44 AM CDT VITAMIN B12 Routine 04/07/2025 9:44 AM CDT Class 1 obesity due to excess calories without serious comorbidity in adult, unspecified BMI Metabolic and nutritional disorder Fatigue, unspecified type 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 Low vitamin D level THYROID FUNCTION CASCADE Routine 04/07/2025 9:44 AM CDT Class 1 obesity due to excess calories without serious comorbidity in adult, unspecified BMI Metabolic and nutritional disorder Fatigue, unspecified type 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 Low vitamin D level LIPID PANEL Routine 04/07/2025 9:44 AM CDT Class 1 obesity due to excess calories without serious comorbidity in adult, unspecified BMI Metabolic and nutritional disorder Fatigue, unspecified type 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 Low vitamin D level HEMOGLOBIN A1C Routine 04/07/2025 9:44 AM CDT Class 1 obesity due to excess calories without serious comorbidity in adult, unspecified BMI Metabolic and nutritional disorder Fatigue, unspecified type 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 Calos Baumann (diagnostic resident services director) also participated in this examination. Procedure Note [...] imaging fellow) and Dr. Calos Baumann (diagnostic resident services director) also participated in this examination. IMPRESSION: Successful [...] MD IMG MAMMO PROCEDURES Nicol l Result * US Guided Breast Biopsy Left (05/22/2025 [...] imaging fellow) and Dr. Calos Baumann (diagnostic resident services director) also participated in this examination. Procedure Note [...] imaging fellow) and Dr. Calos Baumann (diagnostic resident services director) also participated in this examination. IMPRESSION: Successful [...] MD IMG MAMMO PROCEDURES Nicol l Result * (ABNORMAL) US Breast Left Limited (05/14/2025 9:29 AM CDT) Anatomical Region Laterality Modality Breast Left Ultrasound 05/14/2025 10:2 0 AM CDT Impressions 05/14/2025 10:20 AM CDT 1. Enlarging mixed echogenicity mass in the LEFT breast, 1:30 o'clock, 8 cm the nipple, of low suspicion for malignancy. The differential diagnosis includes pseudo-angiomatous stromal hyperplasia. Ultrasound-guided biopsy is recommended. 2. New LEFT breast nipple inversion without sonographic or manic mammographic underlying mass. Further evaluation with breast MRI is recommended as well as surgical consultation. The method of initial detection of finding was patient-reported clinical symptom (Pat). OVERALL FINAL ASSESSMENT: SUSPICIOUS. BI-RADS Category 4A: Low suspicion for malignancy. RECOMMENDATION: Ultrasound-guided biopsy of LEFT breast mass, 1:30 o'clock, 8 cm the nipple. Breast surgery consultation and MRI are recommended for new LEFT breast nipple inversion without mammographic or sonographic correlate. Dr. Valdez discussed the above findings and recommendations with the patient. She has been scheduled for biopsy on 05/22/2025 at 7:30 AM. This facility will contact the referring clinician's office for an order. The radiology attending physician has personally reviewed this study, and had reviewed and/or edited this written report and agrees with it. Electronically signed by: Megan Ladd M.D. Narrative 05/14/2025 10:20 AM CDT EXAMINATION: BILATERAL DIGITAL DIAGNOSTIC MAMMOGRAM INCLUDING CAD AND BILATERAL DIGITAL BREAST TOMOSYNTHESIS; LEFT BREAST SONOGRAM HISTORY: 55-year-old woman presents for evaluation of left nipple retraction for the past 6-8 weeks. COMPARISON: Most recent screening dated 06/01/2024 and multiple priors dating back to 2021. TECHNIQUE: Full field digital mammographic views of BOTH breasts were performed, including computer aided detection (CAD) and BILATERAL digital breast tomosynthesis (DBT). Directed ultrasound evaluation of the LEFT breast was performed. BREAST PARENCHYMAL COMPOSITION: There are scattered areas of fibroglandular density. MAMMOGRAM FINDINGS: Left breast upper outer quadrant is a predominantly oval mass with obscured margins which appears increased in size compared to prior mammograms. Left subareolar area of concern demonstrates no cystic or solid discrete mass to explain patient's nipple retraction. SONOGRAM FINDINGS: LEFT breast, 1:30 o'clock, 8 cm the nipple, there is a 2.5 cm x 0.8 cm x 2.7 cm mixed echogenicity mass without internal vascularity or significant posterior acoustic features, corresponding to the growing mass on mammogram. LEFT breast, subareolar, there is no suspicious cystic or solid mass. us Dheeraj Huerta MD IMG MAMMO PROCEDURES Nicol l Result * (ABNORMAL) Diagnostic Mammogram Bilateral [place] (05/14/2025 8:44 AM CDT) Anatomical Region Laterality Modality Breast Bilateral Mammography 05/14/2025 10:2 0 AM CDT Impressions 05/14/2025 10:20 AM CDT 1. Enlarging mixed echogenicity mass in the LEFT breast, 1:30 o'clock, 8 cm the nipple, of low suspicion for malignancy. The differential diagnosis includes pseudo-angiomatous stromal hyperplasia. Ultrasound-guided biopsy is recommended. 2. New LEFT breast nipple inversion without sonographic or manic mammographic underlying mass. Further evaluation with breast MRI is recommended as well as surgical consultation. The method of initial detection of finding was patient-reported clinical symptom (Pat). OVERALL FINAL ASSESSMENT: SUSPICIOUS. BI-RADS Category 4A: Low suspicion for malignancy. RECOMMENDATION: Ultrasound-guided biopsy of LEFT breast mass, 1:30 o'clock, 8 cm the nipple. Breast surgery consultation and MRI are recommended for new LEFT breast nipple inversion without mammographic or sonographic correlate. Dr. Valdez discussed the above findings and recommendations with the patient. She has been scheduled for biopsy on 05/22/2025 at 7:30 AM. This facility will contact the referring clinician's office for an order. The radiology attending physician has personally reviewed this study, and had reviewed and/or edited this written report and agrees with it. Electronically signed by: Megan Ladd M.D. Narrative 05/14/2025 10:20 AM CDT EXAMINATION: BILATERAL DIGITAL DIAGNOSTIC MAMMOGRAM INCLUDING CAD AND BILATERAL DIGITAL BREAST TOMOSYNTHESIS; LEFT BREAST SONOGRAM HISTORY: 55-year-old woman presents for evaluation of left nipple retraction for the past 6-8 weeks. COMPARISON: Most recent screening dated 06/01/2024 and multiple priors dating back to 2021. TECHNIQUE: Full field digital mammographic views of BOTH breasts were performed, including computer aided detection (CAD) and BILATERAL digital breast tomosynthesis (DBT). Directed ultrasound evaluation of the LEFT breast was performed. BREAST PARENCHYMAL COMPOSITION: There are scattered areas of fibroglandular density. MAMMOGRAM FINDINGS: Left breast upper outer quadrant is a predominantly oval mass with obscured margins which appears increased in size compared to prior mammograms. Left subareolar area of concern demonstrates no cystic or solid discrete mass to explain patient's nipple retraction. SONOGRAM FINDINGS: LEFT breast, 1:30 o'clock, 8 cm the nipple, there is a 2.5 cm x 0.8 cm x 2.7 cm mixed echogenicity mass without internal vascularity or significant posterior acoustic features, corresponding to the growing mass on mammogram. LEFT breast, subareolar, there is no suspicious cystic or solid mass. Dheeraj Huerta MD IMG MAMMO PROCEDURES Nicol l Result * SCAN - OTHER ORDERS (05/14/2025) us Provider Scanning Final Result * (ABNORMAL) Lipid panel (04/07/2025 9:45 AM CDT) Cholesterol 177 100 - 199 mg/dL [facility] - 01 Triglycerides 69 0 - 149 mg/dL [facility] - 01 HDL Cholesterol 53 >39 mg/dL [facility] - 01 VLDL 13 5 - 40 mg/dL [facility] - 01 LDL, calculated 111(H) 0 - 99 mg/dL [facility] - 01 04/07/2025 9:45 AM CDT 04/07/2025 Narrative [facility] - 04/08/2025 7:08 AM CDT Performed at: [address] [place] [address] [id number] Preschool Education Director: Galindo Cross PhD, Phone: [phone] [facility] Emilia Odell MD LAB BLOOD ORDERABLES Fi nal Result Performing Organization Address [facility] Co de Phone Number [facility] - * Thyroxine (T4) Free, Direct, S (04/07/2025 9:44 AM CDT) Free T4 1.51 0.82 - 1.77 ng/dL [facility] - 01 04/07/2025 9:44 AM CDT 04/07/2025 Narrative [facility] - 04/08/2025 8:36 AM CDT Performed at: [address] [place] [address] [id number] Preschool Education Director: Galindo Cross PhD, Phone: [phone] Rachel Mota MD LAB BLOOD ORDERABLES Fin al Result Performing Organization Address City/[facility]/ZIP Co de Phone Number [facility] - * T3Free (04/07/2025 9:44 AM CDT) Free T3 2.7 2.0 - 4.4 pg/mL [facility] - 01 Thyroid peroxidase (TPO) Ab, comment Comment [facility] - 01 Comment: A low TSH with a normal FT4 and a normal FT3 have been associated with Subclinical Hyperthyroidism. Similar values have also been associated with Non-Thyroidal Illness in severely ill patients. 04/07/2025 9:44 AM CDT 04/07/2025 Narrative [facility] - 04/08/2025 8:36 AM CDT Performed at: [address] [place] [address] [id number] Preschool Education Director: Galindo Cross PhD, Phone: [phone] Rachel Mota MD LAB BLOOD ORDERABLES Fin al Result Performing Organization Address [facility] de Phone Number [facility] - * (ABNORMAL) Thyroid Function [place] (04/07/2025 9:44 AM CDT) TSH 0.389(L) 0.450 - 4.500 uIU/mL [facility] - Blood 04/07/2025 9:44 AM CDT 04/07/2025 Narrative [facility] - 04/08/2025 8:36 AM CDT Performed at: [address] [place] [address] [id number] Preschool Education Director: Galindo Cross PhD, Phone: [phone] Specimen Comment: A courtesy copy of this report has been sent to [phone] Rachel Mota MD LAB BLOOD ORDERABLES Fin al Result Performing Organization Address [facility] Co de Phone Number [facility] - 01 * Hemoglobin A1c (04/07/2025 9:44 AM CDT) Hgb A1C 4.9 4.8 - 5.6 % [facility] - 01 Comment: Prediabetes: 5.7 - 6.4 Diabetes: >6.4 Glycemic control for adults with diabetes: <7.0 Blood 04/07/2025 9:44 AM CDT 04/07/2025 Narrative [facility] - 04/08/2025 6:42 AM CDT Performed at: [address] [place] [address] [id number] Preschool Education Director: Galindo Cross PhD, Phone: [phone] Rachel Mota MD LAB BLOOD ORDERABLES Fin al Result Performing Organization Address City/[facility] Co de Phone Number [facility] - 01 * (ABNORMAL) Vitamin B12 (04/07/2025 9:44 AM CDT) Pathologist [facility] Vitamin B12 >2000(H) 232 - 1245 pg/mL [facility] - 01 Blood 04/07/2025 9:44 AM CDT 04/07/2025 Narrative [facility] - 04/08/2025 8:36 AM CDT Performed at: [address] [place] [address] [id number] Preschool Education Director: Galindo Cross PhD, Phone: [phone] Rachel Mota MD LAB BLOOD ORDERABLES Fin al Result Performing Organization Address [facility] de Phone Number [facility] - 01 * (ABNORMAL) Lipid panel (04/07/2025 9:44 AM CDT) [facility] Cholesterol 172 100 - 199 mg/dL [facility] - 01 Triglycerides 66 0 - 149 mg/dL [facility] - 01 HDL Cholesterol 52 >39 mg/dL [facility] - 01 VLDL 13 5 - 40 mg/dL [facility] - 01 LDL, calculated 107(H) 0 - 99 mg/dL [facility] - 01 Blood 04/07/2025 9:44 AM CDT 04/07/2025 Narrative [facility] - 04/08/2025 6:42 AM CDT Performed at: [address] [place] [address] [id number] Preschool Education Director: Galindo Cross PhD, Phone: [phone] Rachel Mota MD LAB BLOOD ORDERABLES Fin al Result Performing Organization Address City/[facility]/ZIP Co de Phone Number [facility] - 01 * Comprehensive metabolic panel (04/07/2025 9:44 AM CDT) [facility] Glucose 76 70 - 99 mg/dL [facility] - 01 BUN 11 6 - 24 mg/dL [facility] - 01 Creatinine, Serum 0.67 0.57 - 1.00 mg/dL [facility] - 01 eGFR 104 >59 mL/min/1.73 [facility] - 01 BUN/creat ratio 16 9 - 23 [facility] - 01 Sodium 138 134 - 144 mmol/L [facility] - 01 Potassium, sr 4.7 3.5 - 5.2 mmol/L [facility] - 01 Chloride 105 96 - 106 mmol/L [facility] - 01 CO2 20 20 - 29 mmol/L [facility] - 01 Calcium 9.3 8.7 - 10.2 mg/dL [facility] - 01 Protein, sr 6.5 6.0 - 8.5 g/dL [facility] - 01 Albumin 4.3 3.8 - 4.9 g/dL [facility] - 01 Globulin, Total 2.2 1.5 - 4.5 g/dL [facility] - 01 Bilirubin, Total 0.5 0.0 - 1.2 mg/dL [facility] - 01 Alk phos 65 44 - 121 IU/L [facility] - 01 AST 17 0 - 40 IU/L [facility] - 01 ALT 17 0 - 32 IU/L [facility] - 01 Blood 04/07/2025 9:44 AM CDT 04/07/2025 Narrative [facility] - 04/08/2025 7:36 AM CDT Performed at: 01 - [facility] [address] [id number] Preschool Education Director: Galindo Cross PhD, Phone: [phone] us Rachel Mota MD LAB BLOOD ORDERABLES Fin al Result [facility] - 01 from Last 3 Months Insurance [facility] CHOICE PLUS FOR LIFE [facility] CHOICE PLUS WEST CLAIMS [facility] CHOICE PLUS [facility] WEST CLAIMS Advance Directives For more information, please contact: [phone] * Full Code (Latest Code Status on File) Date Activated Date Inactivated Comments 01/09/2021 12:59 AM 01/13/2021 3:31 PM Care Teams Personal Care Aide Relationship Specialty Start Date End Date José Miguel Hankins MD [address] [place] [id number] PCP - General Family Medicine 05/17/23
--- OUTSIDE RECORDS SUMMARY | 2025-05-23 07:27 | XMS_ITS | Clinical Summary ---
Author Organization [facility] Address [address] [place] [address] Care Team Providers Care Business Services Associate Name Role Phone José Miguel Hankins MD Primary Care Provider [phone] Source Comments [facility],non-owned Affiliates and Associated Physician Practices is amultiple site organization consisting of ambulatory clinics and hospital sitesin [place], [place] and [place]. This disclosure is being madepursuant to the Care Everywhere program and may not contain all information available regarding this patient. 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 Gender Identity Not on file Sexual Orientation Not on file Plan of Treatment Health Maintenance Due Date Last Done Comments COLOGUARD (AGES 45-75) - COL ON CA SCREENING 1972 COLON MONITORING 1972 COLONOSCOPY - COLON CA SCREENING 1972 CT COLONOGRAPHY - COLON CA SCREENING 1972 Colorectal Cancer Screening 1972 FIT - COLON CA SCREENING 1972 FLEX SIG - COLON CA SCREENING 1972 LIPID TESTING 1972 MAMMOGRAM 1972 HIV SCREENING 01/29/1987 HEPATITIS C SCREENING 01/25/1990 DTAP/TDAP/TD VACCINES (1 - Tdap) 01/29/1991 HEPATITIS B VACCINE (1 of 3 - 19+ 3-dose series) 01/29/1991 PAP SMEAR 01/29/1993 PNEUMOCOCCAL VACCINE 50+ (1 of 1 - PCV) 01/29/2022 ZOSTER VACCINE (1 of 2) 01/29/2022 COVID-19 VACCINE ( - 2023-2 5 season) 2024 DEPRESSION SCREENING 11/01/2024 INFLUENZA VACCINE (#1) 2025 HIB VACCINE Aged Out No longer eligi ble based on patient's age to complete this topic HPV VACCINE Aged Out No longer eligi ble based on patient's age to complete this topic MENINGOCOCCAL (Group B) VACC INE SHARED DECISION-MAKING Aged Out No longer eligibl e based on patient's age to complete this topic MENINGOCOCCAL GROUPS A/C/Y/W VACCINE Aged Out No longer eligible b ased on patient's age to complete this topic Insurance [facility] Address: [facility] [address] [place] [address] [facility] Care Teams Business Services Associate Relationship Specialty Start Date End Date José Miguel Hankins MD [address] [place] [address] [place] [address] PCP - General 09/18/22
--- OUTSIDE RECORDS SUMMARY | 2025-05-23 07:27 | XMS_ITS ---
Author Organization [facility] [employer] [place] ([address]) Address [address] [facility] [address] [place] [address] Care Team Providers Care Licensed Social Worker Name Role Phone ZZ-Migration, Provider Unavailable Unavailab le REASON FOR VISIT Multum To Medispan Conversion Encounter Medications Medication SIG (Take, Route, Frequency, Duration) Notes Start Date End Date Status Estradiol 0.1 MG/GM as directed intravag inally 3 times a week Active Ibuprofen 200 MG 1 cap(s) orally ever y 6 hours Active Levothyroxine Sodium 88 MCG 1 tab(s) orally once a day A ctive Verapamil HCl ER 240 MG 1 tab(s) orally once a day (in the morning) Active Pulmicort 0.5 MG/2ML 2 mL by nebulizer 2 times a day Active Vitamin D (Ergocalciferol) 1.25 MG (92280 UT) 1 cap(s) orally once a week Active Xyzal Allergy 24HR 5 MG 1 tab(s) orally once a day (in the evening) Active Encounters Encounter Location Date Provider Diagnosis [address] [address] 04/15/2024 Provider ZZ-Migration Plan Of Treatment No Information Progress Notes * Winston RBOOKEinDOB:1970 (55 yo F)Acc No.[id number]:04/15/2024 Patient: Carol ROSAS Provider: Lavern Moreno :1970 A ge:54 Y S ex:Female Date:04/15/2024 Address:[address] [place] [facility] Subjective: * Chief Complaints: * 1 . Multum To Medispan Conversion Encounter. * Medical History: * Medications: T aking Ibuprofen 200 MG Capsule 1 cap(s) orally every 6 hours , Taking Estradiol 0.1 MG/GM Cream as directed intravaginally 3 times a week , Taking Vitamin D (Ergocalciferol) 1.25 MG (25125 UT) Capsule 1 cap(s) orally once a [...] day (in the morning) Objective: * Vitals: Assessment: Plan: * Treatment: * Billing Information: * Visit Code: * Procedure Codes: * Electronic signature of Lázaro GARAY-Migration on 05/23/2025 at 07:27 AM CDT Sign off status: Pending * Provider: Lavern bojorquez Migration Date: 0 04/15/2024 Generated for Jeniffer castañeda/Antonia/Yaneth on: 05/23/2025 07:27 AM CDT
--- OUTSIDE RECORDS SUMMARY | 2025-05-23 07:27 | XMS_ITS | Encounter Summary ---
Author Organization [facility] Address [address] [place] [address] Phone Care Team Providers Care Assisted Sales Representative Name Role Phone Cassandra Sanz Primary Care Provider [phone] José Miguel Hankins MD Primary Care Provider Encounter Details Date Type Department Care Team (Latest Contact Info) Description 09/24/2021 Orders Only [facility] Scanning, Provider Social History Tobacco Use Types Packs/Day Years Used Date Smoking Tobacco: Former Cigarettes Q uit: 12/31/2019 Smokeless Tobacco: Former Comments:Smoking History Pac ks/day: 1.5 Packs Alcohol Use Standard Drinks/Week Comments Yes 0 (1 standard drink = 0.6 oz pur e alcohol) AUDIT-C Answer Date Recorded Q1: How often do you have a drink containing alc ohol? 2-4 times a month 01/01/2021 Q2: How many drinks containi ng alcohol do you have on a typical day when you are drinking? 7 to 9 01/01/2021 Q3: How often do you have si x or more drinks on one occasion? 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 Gender Identity Female 01/29/2021 8:14 PM CDT Sexual Orientation Straight 01/29/2021 8: 14 PM CDT documented as of this encounter Plan of Treatment Not on file documented as of this encounter Procedures Procedure Name Priority Date/Time Associated Diagnosis Comments SCAN - LABS 09/24/2021 documented in this encounter Results * SCAN - LABS (09/24/2021) us Provider Scanning Final Result documented in this encounter Visit Diagnoses Not on filedocumented in this encounter Care Teams Assisted Sales Representative Relationship Specialty Start Date End Date Cassandra Sanz PA [address] [place], [place] [id number] PCP - General Gastroenterology 06/06/19 05/16/23 José Miguel Hankins MD [address] [place] [address] PCP - General Family Medicine 05/17/23 documented as of this encounter
--- OUTSIDE RECORDS SUMMARY | 2025-05-23 07:27 | XMS_ITS | Encounter Summary ---
Author Organization [facility] Address [address] [place] [address] Care Team Providers Care Face Man Name Role Phone Josefina Sinclair MD Primary Care Provider José Miguel Hankins MD Primary Care Provider [phone] Encounter Details Date Type Department Care Team (Late st Contact Info) Description 06/12/2022 Lab Requisition [facility] [address] [place] [address] David Conley MD [address] [place] [address] Social History Tobacco Use Types Packs/Day Years Used Date Smoking Tobacco: Never Assessed Comments Unknown Sex and Gender Information Value Date Recorded Sex Assigned at Not on file 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 Gender Identity Not on file Sexual Orientation Not on file documented as of this encounter Plan of Treatment Not on file documented as of this encounter Procedures Procedure Name Priority Date/Time Associated Diagnosis Comments DERMATOPATHOLOGY Routine 06/10/2022 12:0 0 AM CDT documented in this encounter Results * DERMATOPATHOLOGY (06/10/2022 12:00 AM CDT) Case Report Dermatopathology Report Case: [id number] Authorizing Provider: David Conley MD Collected: 06/10/2022 12:00 AM Ordering Location: [facility] Received: 06/12/2022 07:49 AM Pathologist: Alma Degroot MD Specimen: Skin, right forearm 3:52 PM CDT DERMATOPATHOLOGY LABORATORY Final Diagnosis Specimen A. SKIN, right forearm: LICHEN PLANUS-LIKE KERATOSIS (BENIGN LICHENOID KERATOSIS) (L82.1) (see microscopic description) 2 3:52 PM CDT DERMATOPATHOLOGY LABORATORY at 1552 CDT Clinical History [facility] vs. Other. Path# [id number] 2 3:52 PM CDT DERMATOPATHOLOGY LABORATORY Gross Description Specimen A: Received is one formalin filled container labeled with the patient's name and designated right forearm. The specimen consists of a shave biopsy measuring [id number]. Jar 0. 2 3:52 PM CDT DERMATOPATHOLOGY LABORATORY Microscopic Description Specimen A. SKIN, right forearm: The epidermis is mildly acanthotic. There is a lichenoid infiltrate with vacuolar changes of basilar keratinocytes and scattered necrotic keratinocytes. Additional deeper sections were obtained and reviewed. 2 3:52 PM CDT DERMATOPATHOLOGY LABORATORY Disclaimer An external and internal positive and negative controls are appropriate for the histochemical, immunohistochemical and immunofluorescence stain(s) in this case (if any), except where stated explicitly. The performance characteristics of the stain(s) cited in this report were developed and its performance characteristic determined by the Dermatopathology Laboratory at [facility], directed by Dr. Adithya Sapp. These tests need not be, and therefore are not, approved by the [place] Food and Drug Administration. The tests are used for clinical purposes. Billing Codes Specimen Charges Stain Charges 45471 1 2 3:52 PM CDT DERMATOPATHOLOGY LABORATORY Embedded Images 2 3:52 PM CDT DERMATOPATHOLOGY LABORATORY Pathology/Cytolog y TISSUE SPECIMEN FROM SKIN / Unknown 06/10/2022 06/12/2022 7:49 AM CDT us David Conley MD LAB - PATHOLOGY/CYTOLOGY ORDER GURPREET Final Result DERMATOPATHOLOGY LABORATORY [facility] - Department of Dermatology [address], [address] [phone] documented in this encounter Visit Diagnoses Not on filedocumented in this encounter Care Teams Face Man Relationship Specialty Start Date End Date Josefina Sinclair MD [address] [place] [address] PCP - General 12/01/21 09/17/22 José Miguel Hankins MD [address] [place] [address] PCP - General 09/18/22 documented as of this encounter
--- OUTSIDE RECORDS SUMMARY | 2025-05-23 07:27 | XMS_ITS | Clinical Summary ---
Author Organization [facility] [address] [place] [address] Care Team Providers Care Topographical Drafter Name Role Phone José Miguel Hankins MD Primary Care Provider [phone] Allergies Active Allergy Reactions Criticality Noted Date Comments Phentermine Palpitations Low 08/10/2024 In setting of SVT Dexamethasone Stomach upset,Nausea & Vomiting Low 12/25/2020 Other Palpitations Low 06/06/2019 Muscle relaxer; STV Penicillins Hives,Swelling,Redness Medium Medications levocetirizine (XYZAL) 5 mg tablet take 1 tablet by oral route every day in the evening 0 0 015 Active Additional Information Patient taking differently:5 mgoral Every morning, Indications: allergies, Informant: Self, Reported on 03/23/2025 ergocalciferol (VITAMIN D) 50,000 unit capsuleIndications: Vitamin D Deficiency Take 1 capsule (50,000 Units total) by mouth once a week Wednesday Active albuterol (PROAIR RESPICLICK) 90 mcg/actuation inhaler [...] refocus. Assessment & Plan (11/19/2022 2:57 PM LOW RAW SUGAR CUTTER): Reviewed calorie restriction based on BMR as [...] phone. Assessment & Plan (12/15/2021 3:21 PM LOW RAW SUGAR CUTTER): Reviewed calorie restriction based on BMR as [...] diet. Assessment & Plan (11/19/2022 2:57 PM LOW RAW SUGAR CUTTER): Labs. Reviewed most recent labs available. Continue low-carb (<150 g/day), low-glycemic diet. Assessment & Plan (06/04/2022 10:46 AM CDT): Reviewed interim labs. Continue low-carb (<150 g/day), low-glycemic diet. Continue GLP-1 RA. Assessment & Plan (12/15/2021 3:42 PM LOW RAW SUGAR CUTTER): She will ask PCP to send recent [...] w/r/t gut microbiome. Referred to ADA and [employer] websites for additional information on topics including [...] hydrocortisone Assessment & Plan (12/25/2020 1:18 PM LOW RAW SUGAR CUTTER): Patient brought her images discs with her. [...] WNL Assessment & Plan (11/19/2022 2:58 PM LOW RAW SUGAR CUTTER): Labs. 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 Assessment & Plan (11/23/2024 3:03 PM LOW RAW SUGAR CUTTER): Last TSH in good range. Assessment & [...] adjusted Assessment & Plan (12/15/2021 3:44 PM LOW RAW SUGAR CUTTER): Last TSH in good range. Sees endocrine [...] March/2021 Assessment & Plan (12/25/2020 1:01 PM LOW RAW SUGAR CUTTER): Will check thyroid function test. Discussed potentially [...] Other: Assessment & Plan (11/19/2022 2:58 PM LOW RAW SUGAR CUTTER): Obesity is unchanged since last appointment, but [...] Mota Assessment & Plan (12/15/2021 3:43 PM LOW RAW SUGAR CUTTER): Obesity is improving with treatment. Commended on [...] her HC and levothyroxine dose are adjusted Encounters Date Type Department Care Team Description 05/22/2025 7:58 AM CDT - 05/22/2025 11:59 PM CDT Hospital Encounter [facility] Breast Imaging [facility] ([facility]) [address] [place] [address] Abnormal mammogram Discharge Disposition: Discharge to home or self care 05/22/2025 7:08 AM CDT - 05/22/2025 11:59 PM CDT Hospital Encounter [facility] ([facility]) [address] [place] [address] Abnormal mammogram Discharge Disposition: Discharge to home or self care 05/14/2025 7:58 AM CDT - 05/14/2025 11:59 PM CDT Hospital Encounter [facility] ([facility]) [address] [place] [address] Retraction of nipple; Encounter for screening mammogram for malignant neoplasm of breast Discharge Disposition: Discharge to home or self care 05/14/2025 7:58 AM CDT - 05/14/2025 11:59 PM CDT Hospital Encounter [facility] ([facility]) [address] [place] [address] Retraction of nipple; Encounter for screening mammogram for malignant neoplasm of breast Discharge Disposition: Discharge to home or self care 05/14/2025 Orders Only [facility] Information Management [address] [place] [address] Scanning, Provider 05/03/2025 Results Follow-Up [facility] Metabolic Weight Management [address] [place] [address] Medical Office [address] [place] [address] Carol Mcdaniel PA Comprehensive metabolic panel, Hemoglobin A1c, Lipid panel, Additional followed-up results: 4 04/10/2025 Results Follow-Up [facility] Cardiology [address] [facility] [address] [place] [id number] Katerina Odell MD Lipid panel 03/23/2025 1:20 PM CDT Office Visit [facility] Metabolic Weight Management [address] [place] [address] Medical Office [address] [place] [address] Rachel Mota MD Class 1 obesity due to excess calories without serious comorbidity in adult, unspecified BMI (Primary Dx); Weight loss counseling, encounter for; Metabolic and nutritional disorder; Fatigue, unspecified type; 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 ABDOMINAL SURGERY 12/30/2020 - 01/29/2021 BREAST BIOPSY 05/22/2025 Left Medical History Medical History Date Comments Hx Other Medical seasonal allerg ies Hx Other Medical allergic asthma Hx Other Medical post dep ression Peptic ulcer Peptic Ulcer Dis ease Gestational diabetes mellitus (GDM) Diabetes gestational Hx Other Medical thyroiditis Hx Other Medical torn ACL Hx Other Medical R ACL surgery.; Comments: JFB 07/31/2014 - Thyroid disease Supraventricular tachycardia SVT (supraventricular tachycardia) GERD (gastroesophageal reflux disease) Asthma Anemia Hypothyroidism Heart disease Svt 1978 Family History Medical History Relation Name Comments Depression Daughter Gasper Heart disease Father Angel Other Father Angel Poss heart dz/ seen in [facility]; ELU 04/08/2016 -HTN Thyroid disease Father Angel Alcohol abuse Maternal Grandfather Breezy Diabetes Mother Elba Heart disease Mother Elba Hypertension Mother Elba Kidney disease Mother Elba Other Mother Elba CHF, ICD; ELU 0 04/08/2016 -DM HTN Heart attack Paternal Grandfather Duane Diabetes Paternal Grandmother Yue Anesthesia problems Neg Hx Relation Name Status Comments Daughter Gasper Father Angel Maternal Grandfather Breezy Mother Elba Paternal Grandfather Duane Paternal Grandmother Yue Social History Tobacco Use Types Packs/Day Years [...] on file Legal Sex Female 9:18 AM LOW RAW SUGAR CUTTER Gender Identity Female 01/29/2021 8:14 PM CDT Sexual Orientation Straight 01/29/2021 8: 14 PM CDT Obstetrics History Last Filed Vital Signs Vital Sign Reading Time Taken Comments Blood Pressure 115/70 03/23/2025 1:16 PM CDT Pulse 72 03/23/2025 1:16 PM CDT Temperature 36.9 C (98.5 F) 03/23/2025 1:16 PM CDT Respiratory Rate 14 11/20/2024 1:05 PM LOW RAW SUGAR CUTTER Oxygen Saturation 99% 03/23/2025 1:16 PM CDT Inhaled Oxygen Concentration - - Weight 82.2 kg (181 lb 3.2 oz) 03/23/2025 1:16 P M CDT Height 170.2 cm (5' 7) 03/23/2025 1:16 PM CDT Body Mass Index 28.38 03/23/2025 1:16 PM CDT Plan of Treatment Health Maintenance Due Date Last Done Comments Cervical Cancer Screening 1972 Colon Cancer Screening-Colonoscopy 1972 Depression Screening 1972 Hepatitis C Screening 1972 Hepatitis B Screening 01/29/1990 Regular Well Visit/Exam 18-64 01/29/1990 Lung Cancer Screening 01/29/2022 Zoster Vaccine (1 of 2) 01/29/2022 Covid-19 Vaccine (3 - 2023-2 5 season) 2024 01/18/2021, 12/21/2020 Influenza Vaccine (#1) 2025 Breast Cancer Screening-Mammogram 05/14/2026 05/14/2025, 06/01/2024, 05/18/2023 DTaP/Tdap/Td Vaccine (2 - Td or Tdap) 04/22/2031 04/22/2021 Pneumococcal vaccine <65 Aged Out No longer eligible based on patient's age to complete this topic Medical Devices Implanted Type Area Feather Stitcher Device Identifier Shelf Expiration Date Model / Serial / Lot Bard Peripheral Vascular Ultraclip Bard 17ga 10cm 2 Trigger Permanent Ultrasound [id number] - [id number] Implanted:Qty: 1 on 05/22/2025 by Annmarie Chaves MD at [facility] Left: Breast Bard Peripheral Vascular [id number] / / Procedures Procedure Name Priority Date/Time [...] imaging fellow) and Dr. Calos Baumann (diagnostic medical transcription radiology) also participated in this examination. Procedure Note [...] imaging fellow) and Dr. Calos Baumann (diagnostic medical transcription radiology) also participated in this examination. IMPRESSION: Successful [...] imaging fellow) and Dr. Calos Baumann (diagnostic medical transcription radiology) also participated in this examination. Procedure Note [...] imaging fellow) and Dr. Calos Baumann (diagnostic medical transcription radiology) also participated in this examination. IMPRESSION: Successful [...] Result * SCAN - OTHER ORDERS (05/14/2025) Provider Scanning Final Result * (ABNORMAL) Lipid [...] - 04/08/2025 7:08 AM CDT Performed at: [address] [place] [id number] Cigar Head Holer: Galindo Cross PhD, Phone: [phone] Katerina Odell MD LAB BLOOD ORDERABLES Fi nal Result Performing Organization Address [facility] Co de Phone Number [facility] * Thyroxine (T4) Free, Direct, S (04/07/2025 9:44 AM CDT) Free T4 1.51 0.82 - 1.77 ng/dL [facility] - 01 04/07/2025 9:44 AM CDT 04/07/2025 Narrative [facility] - 04/08/2025 8:36 AM CDT Performed at: [address] [place] [id number] Cigar Head Holer: Galindo Cross PhD, Phone: [phone] Rachel Mota MD LAB BLOOD ORDERABLES Fin al Result Performing Organization Address [facility] Co de Phone Number [facility] - * T3Free (04/07/2025 9:44 AM [...] - 04/08/2025 8:36 AM CDT Performed at: [address] [place] [address] [id number] Cigar Head Holer: Galindo Cross PhD, Phone: [phone] Rachel Mota MD LAB BLOOD ORDERABLES Fin al Result Performing Organization Address [facility] de Phone Number [facility] - * (ABNORMAL) Thyroid Function [place] (04/07/2025 9:44 AM CDT) TSH 0.389(L) 0.450 - 4.500 uIU/mL [facility] - Blood 04/07/2025 9:44 AM CDT 04/07/2025 Narrative [facility] - 04/08/2025 8:36 AM CDT Performed at: [address] [place] [address] [id number] Cigar Head Holer: Galindo Cross PhD, Phone: [phone] Specimen Comment: A courtesy copy of this report has been sent to [phone] Rachel Mota MD LAB BLOOD ORDERABLES Fin al Result Performing Organization Address [facility] Co de Phone Number [facility] - * Hemoglobin A1c (04/07/2025 9:44 AM CDT) Hgb A1C 4.9 4.8 - 5.6 % [facility] - 01 Comment: Prediabetes: 5.7 - 6.4 Diabetes: >6.4 Glycemic control for adults with diabetes: <7.0 Blood 04/07/2025 9:44 AM CDT 04/07/2025 Narrative [facility] - 04/08/2025 6:42 AM CDT Performed at: [address] [id number] Cigar Head Holer: Galindo Cross PhD, Phone: [phone] Rachel Mota MD LAB BLOOD ORDERABLES Fin al Result Performing Organization Address [facility] Co de Phone Number [facility] - 01 * (ABNORMAL) Vitamin B12 (04/07/2025 9:44 AM CDT) Pathologist [facility] Vitamin B12 >2000(H) 232 - 1245 pg/mL [facility] - 01 Blood 04/07/2025 9:44 AM CDT 04/07/2025 Narrative [facility] - 04/08/2025 8:36 AM CDT Performed at: [address] [id number] Cigar Head Holer: Galindo Cross PhD, Phone: [phone] us Rachel oMta MD LAB BLOOD ORDERABLES Fin al Result Performing Organization Address [facility] Co de Phone Number [facility] - 01 * (ABNORMAL) Lipid panel (04/07/2025 9:44 AM CDT) [facility] Cholesterol 172 100 - 199 mg/dL [facility] - 01 Triglycerides 66 0 - 149 mg/dL [facility] - 01 HDL Cholesterol 52 >39 mg/dL [facility] - 01 VLDL 13 5 - 40 mg/dL [facility] - 01 LDL, calculated 107(H) 0 - 99 mg/dL [facility] - 01 Blood 04/07/2025 9:44 AM CDT 04/07/2025 Narrative [facility] - 04/08/2025 6:42 AM CDT Performed at: [address] [id number] Cigar Head Holer: Galindo Cross PhD, Phone: [phone] Rachel Mota MD LAB BLOOD ORDERABLES Fin al Result [facility] - 01 * Comprehensive metabolic panel (04/07/2025 9:44 AM CDT) [facility] Glucose 76 70 - 99 mg/dL [facility] [...] AM CDT Performed at: 01 - [facility] [address] [id number] Cigar Head Holer: Galindo Cross PhD, Phone: [phone] us Rachel Mota MD LAB BLOOD ORDERABLES Fin al Result [facility] - 01 from Last 3 Months Insurance [facility] CHOICE PLUS [facility] H[facility]/PPO Address: [id number] [place] [address] FOR LIFE CHOICE PLUS [facility] HMO/PPO Address: [address] [address] [place] [address] WEST CLAIMS [facility] CHOICE PLUS [facility] HMO/PPO Address: [address] [address] [place] [address] [facility] WEST CLAIMS Advance Directives For more information, please contact: [phone] * Full Code (Latest Code Status on File) Date Activated Date Inactivated Comments 01/09/2021 12:59 AM 01/13/2021 3:31 PM Care Teams Topographical Drafter Relationship Specialty Start Date End Date José Miguel Hankins MD [address] [place] [address] PCP - General Family Medicine 05/17/23
--- OUTSIDE RECORDS SUMMARY | 2025-05-23 07:27 | XMS_ITS | Encounter Summary ---
Author Organization [facility] Address [address] [place] [address] Phone Care Team Providers Care Equipment Maintenance Engineer Name Role Phone José Miguel Hankins MD Primary Care Provider [phone] Encounter Details Date Type Department Care Team (Latest Contact Info) Description 05/03/2025 Results Follow-Up 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
--- OUTSIDE RECORDS SUMMARY | 2025-05-23 07:27 | XMS_ITS | Patient Health Record ---
Author Organization Counts Include [facility] [employer] [place] ([address]) Address [address] [place] [address] Support Name Relationship Address Phone Carol Madera Guarantor Unknown [phone] Reason For Referral No Information Medications Medication SIG (Take, Route, Frequency, Duration) Notes Start Date End Date Status Estradiol 0.1 MG/GM as directed intravag inally 3 times a week Active Ibuprofen 200 MG 1 cap(s) orally ever y 6 hours Active Verapamil HCl ER 240 MG 1 tab(s) orally once a day (in the morning) Active Xyzal Allergy 24HR 5 MG 1 tab(s) orally once a day (in the evening) Active Vitamin D (Ergocalciferol) 1.25 MG (12113 UT) 1 cap(s) orally once a week Active Levothyroxine Sodium 88 MCG 1 tab(s) orally once a day A ctive Pulmicort 0.5 MG/2ML 2 mL by nebulizer 2 times a day Active Problems Problem Type SNOMED Code ICD Code Onset Dates Problem Status W/U Status Risk Notes Problem Morbid obesity (disorder) (239573474) Morbid (severe) obesity due to excess calories (E66.01) Active confirmed Problem Chronic fatigue syndrome (disorder) (21831432) Chronic fatigue, unspecified (R53.82) Active confirmed Plan Of Treatment No Information
[2025-05-23 08:09] LABS: Hematocrit 41.6 % (37.0-47.0); Hemoglobin 13.6 g/dL (12.0-15.0); Mean Corpuscular HGB Conc 32.7 g/dl (32-36); Mean Corpuscular Hemoglobin 29.3 pg (26-34); Mean Corpuscular Volume 89.7 fl (80-100); Platelet Count Result 294 k/mm3 (150-375); Red Blood Count 4.64 M/mm3 (4.2-5.4); White Blood Count 5.4 K/mm3 (4.5-10.0)
== END 2025-05-23 07:20 | disposition home or self-care (01) ==
PROVIDERS: PCP Family Medicine
DX: I47.10 Supraventricular tachycardia, unspecified (principal); E03.9 Hypothyroidism, unspecified; E55.9 Vitamin D deficiency, unspecified; Z98.890 Other specified postprocedural states
CPT/HCPCS: 36415; 82306; 82533; 85027

== ENCOUNTER 2025-10-23 00:46 | Day surgery (SDC) | payer OTHER, SELFPAY ==
[2025-10-03 14:23] VITALS: BMI 26.9
--- OUTSIDE RECORDS SUMMARY | 2025-10-23 01:24 | XMS_ITS | Encounter Summary ---
Author Organization [facility] Address [address] [facility] [place] [address] Care Team Providers Care Vacuum Form Operator Name Role Phone Josefina Sinclair MD Primary Care Provider José Miguel Hankins MD Primary Care Provider [phone] Encounter Details Date Type Department Care Team (Late st Contact Info) Description 06/12/2022 Lab Requisition [facility] [address] [place] [address] David Conley MD [address] [facility] [place] [address] Social History Tobacco Use Types Packs/Day Years Used Date Smoking Tobacco: Never Assessed Comments Unknown Sex and Gender Information Value Date Recorded Sex Assigned at Not on file Legal Sex Female 11:53 AM 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 Gender Identity Not on file Sexual Orientation Not on file documented as of this encounter Plan of Treatment Not on file documented as of this encounter Procedures Procedure Name Priority Date/Time Associated Diagnosis Comments DERMATOPATHOLOGY Routine 06/10/2022 12:0 0 AM CDT documented in this encounter Results * DERMATOPATHOLOGY (06/10/2022 12:00 AM CDT) Case Report Dermatopathology Report Case: [id number] Authorizing Provider: David Conley MD Collected: 06/10/2022 12:00 AM Ordering Location: [facility] Received: 06/12/2022 07:49 AM Pathologist: Alma Degroot MD Specimen: Skin, right forearm 08/15/202 2 3:52 PM CDT DERMATOPATHOLOGY LABORATORY Final Diagnosis Specimen A. SKIN, right forearm: LICHEN PLANUS-LIKE KERATOSIS (BENIGN LICHENOID KERATOSIS) (L82.1) (see microscopic description) 2 3:52 PM CDT DERMATOPATHOLOGY LABORATORY at 1552 CDT Clinical History BCCA vs. Other. Path# [id number] 2 3:52 PM CDT DERMATOPATHOLOGY LABORATORY Gross Description Specimen A: Received is one formalin filled container labeled with the patient's name and designated right forearm. The specimen consists of a shave biopsy measuring 2p3x2jy. Jar 0. 2 3:52 PM CDT DERMATOPATHOLOGY [...] characteristic determined by the Dermatopathology Laboratory at [facility], directed by Dr. Adithya Sapp. These tests need not be, and therefore are not, approved by the [place] Food and Drug Administration. The tests are used for clinical purposes. Billing Codes Specimen Charges Stain Charges 76927 1 2 3:52 PM CDT DERMATOPATHOLOGY LABORATORY Embedded Images 2 3:52 PM CDT DERMATOPATHOLOGY LABORATORY Pathology/Cytolog y TISSUE SPECIMEN FROM SKIN / Unknown 06/10/2022 06/12/2022 7:49 AM CDT us David Conley MD LAB - PATHOLOGY/CYTOLOGY ORDER GURPREET Final Result DERMATOPATHOLOGY LABORATORY [facility] - Department of Dermatology [address] [phone] documented in this encounter Visit Diagnoses Not on filedocumented in this encounter Care Teams Vacuum Form Operator Relationship Specialty Start Date End Date Josefina Sinclair MD [address] [place] [address] PCP - General 12/01/21 09/17/22 José Miguel Hankins MD [address] [place] [address] PCP - General 09/18/22 documented as of this encounter
--- OUTSIDE RECORDS SUMMARY | 2025-10-23 01:24 | XMS_ITS | Encounter Summary ---
Author Organization [facility] Address [address] [place] [address] Phone Care Team Providers Care Chemical Radiation Technician Name Role Phone Cassandra Sanz Primary Care Provider [phone] José Miguel Hankins MD Primary Care Provider [phone] Encounter Details Date Type Department Care Team [...] on file Legal Sex Female 9:18 AM DIRECTOR MEDICARE SALES Gender Identity Female 01/29/2021 8:14 PM CDT [...] on filedocumented in this encounter Care Teams Chemical Radiation Technician Relationship Specialty Start Date End Date Cassandra Sanz PA [address] [place], [place] [id number] PCP - General Gastroenterology 06/06/19 05/16/23 José Miguel Hankins MD [address] [place] [address] PCP - General Family Medicine 05/17/23 documented as of this encounter
--- OUTSIDE RECORDS SUMMARY | 2025-10-23 01:24 | XMS_ITS | Patient Health Record ---
Author Organization [facility] [email or web address] ([address]) Address [address] [place] [address] Support Name Relationship Address Phone Carol Madera Guarantor Unknown [phone] Reason For Referral No Information Medications Medication [...] evening) Active Vitamin D (Ergocalciferol) 1.25 MG (74676 UT) 1 cap(s) orally once a week Active Levothyroxine Sodium 88 MCG 1 tab(s) orally once a day A ctive Pulmicort 0.5 MG/2ML 2 mL by nebulizer 2 times a day Active Problems Problem Type SNOMED Code ICD Code Onset Dates Problem Status W/U Status Risk Notes Problem Morbid obesity (disorder) (294692978) Morbid (severe) obesity due to excess calories (E66.01) Active confirmed Problem Chronic fatigue syndrome (disorder) (03283215) Chronic fatigue, unspecified (R53.82) Active confirmed Plan Of Treatment No Information
--- OUTSIDE RECORDS SUMMARY | 2025-10-23 01:24 | XMS_ITS | Clinical Summary ---
Author Organization [facility] Address [address] [place] [address] Care Team Providers Care Anodizing Line Operator Name Role Phone José Miguel Hankins MD Primary Care Provider [phone] Source Comments [facility],non-owned Affiliates and Associated Physician Practices is amultiple site organization consisting of ambulatory clinics and hospital sitesin [place], [place], [place] and [place]. This disclosure is being madepursuant to the Care Everywhere program and may not contain all information available regarding this patient. 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 Gender Identity Not on file Sexual Orientation [...] of 3 - 19+ 3-dose series) 01/29/1991 PNEUMOCOCCAL VACCINE 50+ (1 of 1 - PCV) 01/29/2022 ZOSTER VACCINE (1 of 2) 01/29/2022 DEPRESSION SCREENING 11/01/2024 COVID-19 VACCINE (1 - 2024-2 6 season) 2025 INFLUENZA VACCINE (#1) 2025 HIB VACCINE Aged [...] patient's age to complete this topic Insurance [facility] Address: [facility] [address] [place] [address] [facility] Care Teams Anodizing Line Operator Relationship Specialty Start Date End Date José Miguel Hankins MD [address] [place] [address] PCP - General 09/18/22
--- OUTSIDE RECORDS SUMMARY | 2025-10-23 01:24 | XMS_ITS | Clinical Summary ---
Author Organization [facility] [address] Address [address] [place] [address] Care Team Providers Care Infection Control Coordinator Name Role Phone José Miguel Hankins MD Primary Care Provider [phone] Allergies Active Allergy Reactions Criticality Noted Date Comments Phentermine Palpitations Low 08/10/2024 In setting of SVT Dexamethasone Stomach upset,Nausea & Vomiting Low 12/25/2020 Morphine Vomiting Low 09/08/2022 Other Palpitations Low 06/06/2019 Muscle relaxer; STV Penicillins Hives,Swelling,Redness Medium Medications levocetirizine (XYZAL) 5 mg tablet take 1 tablet by oral route every day in the evening 0 0 015 Active ergocalciferol (VITAMIN D) 50,000 unit capsuleIndications: Vitamin D Deficiency Take 1 capsule (50,000 Units total) by mouth once a week Wednesday night Active albuterol (PROAIR RESPICLICK) 90 mcg/actuation inhaler Inhale 2 puffs every 6 (six) hours as needed for wheezing Active ibuprofen (ADVIL,MOTRIN) 200 mg tab/cap 021 Active scopolamine 1 mg over 3 days patch 3 day APPLY 1 PATCH TOPICALLY TO THE SKIN EVERY 72 HOURS NEEDED FOR MOTION SICKNESS 023 Active verapamiL (CALAN) 40 mg tabletIndications:P aroxysmal Supraventricular Tachycardia Take 1 tablet (40 mg total) by mouth daily as needed (palpitations ) 10 tablet 3 024 Active budesonide (PULMICORT) 0.5 mg/2 mL nebulizer solution 025 Active estradioL (ESTRACE) 2 mg tablet 024 Active levocetirizine dihydrochloride (LEVOCETIRIZINE, BULK, MISC) 5 mg 021 Active levothyroxine (SYNTHROID) 75 mcg tablet Take 1 tablet (75 mcg total) by mouth daily 025 Active tirzepatide, weight loss, (Zepbound) 15 mg/0.5 mL pen injector Inject 0.5 mL (15 mg total) under the skin every 7 days 2 mL 3 025 Active verapamil SR (CALAN SR) 240 mg CR tablet Take 1 tablet (240 mg total) by mouth daily PLEASE CONTACT THE OFFICE TO SCHEDULE AN APPOINTMENT. 90 tablet 025 Active fluticasone propionate (FLONASE) 50 mcg/actuation nasal sprayIndications:Ri ght acute serous otitis media, recurrence not specified Administer 2 sprays into each nostril daily 1 each 025 Active ezetimibe (ZETIA) 10 mg tablet TAKE 1 TABLET DAILY 90 tablet 025 Active ezetimibe (ZETIA) 10 mg tablet Take 1 tablet (10 mg total) by mouth daily 90 tablet 1 025 2024 Discontinued doxycycline (VIBRAMYCIN) 100 mg capsuleIndications: Acute maxillary sinusitis, recurrence not specified Take 1 tablet/capsul e (100 mg total) by mouth 2 (two) times a day for 7 days 14 tablet/caps ule 025 2024 Active Problems Problem Noted Date Diagnosed Date [...] refocus. Assessment & Plan (11/19/2022 2:57 PM ANALOG CIRCUIT DESIGNER): Reviewed calorie restriction based on BMR as [...] phone. Assessment & Plan (12/15/2021 3:21 PM ANALOG CIRCUIT DESIGNER): Reviewed calorie restriction based on BMR as [...] diet. Assessment & Plan (11/19/2022 2:57 PM ANALOG CIRCUIT DESIGNER): Labs. Reviewed most recent labs available. Continue low-carb (<150 g/day), low-glycemic diet. Assessment & Plan (06/04/2022 10:46 AM CDT): Reviewed interim labs. Continue low-carb (<150 g/day), low-glycemic diet. Continue GLP-1 RA. Assessment & Plan (12/15/2021 3:42 PM ANALOG CIRCUIT DESIGNER): She will ask PCP to send recent [...] w/r/t gut microbiome. Referred to ADA and panpan websites for additional information on topics including [...] hydrocortisone Assessment & Plan (12/25/2020 1:18 PM ANALOG CIRCUIT DESIGNER): Patient brought her images discs with her. [...] WNL Assessment & Plan (11/19/2022 2:58 PM ANALOG CIRCUIT DESIGNER): Labs. 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 Assessment & Plan (11/23/2024 3:03 PM ANALOG CIRCUIT DESIGNER): Last TSH in good range. Assessment & [...] adjusted Assessment & Plan (12/15/2021 3:44 PM ANALOG CIRCUIT DESIGNER): Last TSH in good range. Sees endocrine [...] March/2021 Assessment & Plan (12/25/2020 1:01 PM ANALOG CIRCUIT DESIGNER): Will check thyroid function test. Discussed potentially [...] Other: Assessment & Plan (11/19/2022 2:58 PM ANALOG CIRCUIT DESIGNER): Obesity is unchanged since last appointment, but [...] Mota Assessment & Plan (12/15/2021 3:43 PM ANALOG CIRCUIT DESIGNER): Obesity is improving with treatment. Commended on [...] Encounters Date Type Department Care Team Description 10/03/2025 2:45 PM ANALOG CIRCUIT DESIGNER Office Visit [facility] [address] [address] Fransisca Norwood NP Acute maxillary sinusitis, recurrence not specified (Primary Dx); Right acute serous otitis media, recurrence not specified 08/20/2025 10:30 AM CDT Office Visit [facility] Medicine Orthopaedic Surgery [address] [place] [address] Fady Noriega MD Pain in both knees, unspecified chronicity (Primary Dx); Bilateral chronic knee pain; Bilateral primary osteoarthritis of knee; Primary osteoarthritis of right knee 08/20/2025 10:00 AM CDT - 08/20/2025 11:59 PM CDT Hospital Encounter [facility] [address] [place] [address] Pain in both knees, unspecified chronicity Discharge Disposition: Discharge to home or self care 08/20/2025 Telephone [facility] Cardiology [address] [place] [address] Annmarie Whitley NP Med Refill; vascular referral from Last 3 Months Surgical History Surgery [...] attack Paternal Grandfather Duane Diabetes Paternal Grandmother [place] Anesthesia problems Neg Hx Relation Name Status Comments Daughter Gasper Father Angel Maternal Grandfather Breezy Mother Elba Paternal Grandfather Duane Paternal Grandmother Yue Social History Tobacco Use Types Packs/Day Years Used Date Smoking Tobacco: Former Cigarettes 1 33 Q uit: 12/31/2019 Passive Smoke Exposure: Past Smokeless Tobacco: Never Tobacco Cessation:Counseling Given: Not [...] on file Legal Sex Female 9:18 AM ANALOG CIRCUIT DESIGNER Gender Identity Female 01/29/2021 8:14 PM CDT Sexual Orientation Straight 01/29/2021 8: 14 PM CDT Last Filed Vital Signs Vital Sign Reading Time Taken Comments Blood Pressure 118/64 10/03/2025 2:36 PM ANALOG CIRCUIT DESIGNER Pulse 75 10/03/2025 2:36 PM ANALOG CIRCUIT DESIGNER Temperature 36 C (96.8 F) 10/03/2025 2:36 PM ANALOG CIRCUIT DESIGNER Respiratory Rate 16 10/03/2025 2:36 PM ANALOG CIRCUIT DESIGNER Oxygen Saturation 98% 10/03/2025 2:36 PM ANALOG CIRCUIT DESIGNER Inhaled Oxygen Concentration - - Weight 80.3 kg (177 lb) 10/03/2025 2:36 PM ANALOG CIRCUIT DESIGNER Height 170.2 cm (5' 7) 10/03/2025 2:36 PM ANALOG CIRCUIT DESIGNER Body Mass Index 27.72 10/03/2025 2:36 PM ANALOG CIRCUIT DESIGNER Plan of Treatment Health Maintenance Due Date Last Done Comments Cervical Cancer Screening 1972 Colon Cancer Screening-Colonoscopy 1972 Depression Screening 1972 Hepatitis C Screening 1972 Hepatitis B Screening 01/29/1990 Regular Well Visit/Exam 18-64 01/29/1990 Lung Cancer Screening 01/29/2022 Covid-19 Vaccine (3 - 2024-2 6 season) 2025 01/18/2021, 12/21/2020 Influenza Vaccine (#1) 2025 Breast Cancer Screening-Mammogram 05/14/2026 05/14/2025, 06/01/2024, 05/18/2023 DTaP/Tdap/Td Vaccine (2 - Td or Tdap) 04/22/2031 04/22/2021 Zoster Vaccine Completed 11/14/2022, 06/04/2022 Pneumococcal vaccine <65 Aged Out No longer eligible based on patient's age to complete this topic Medical Devices Implanted Type Area Hog Worker Device Identifier Shelf Expiration Date Model / Serial / Lot Right Knee Hardware Right: Knee Bard Peripheral Vascular Ultraclip Bard 17ga 10cm 2 Trigger Permanent Ultrasound [id number] - [id number] Implanted:Qty: 1 on 05/22/2025 by Annmarie Chaves MD at [facility] Left: Breast Bard Peripheral Vascular [id number] / / Procedures Procedure Name Priority Date/Time Associated Diagnosis Comments XR KNEE RIGHT 4 OR MORE VIEWS Schedule Routine, Read Routine (OP Routine) 08/20/2025 10:49 AM CDT Pain in both knees, unspecified chronicity XR KNEE LEFT 4 OR MORE VIEWS Schedule Routine, Read Routine (OP Routine) 08/20/2025 10:49 AM CDT Pain in both knees, unspecified chronicity UT ARTHROCENTESIS ASPIR&/INJ MAJOR JT/BURSA W/O US Routine 08/20/2025 10:30 AM CDT Primary osteoarthritis of right knee DIAGNOSTIC MAMMOGRAM BILATERAL W YVES Routine 05/14/2025 8:44 AM CDT Retraction of nipple Encounter for screening mammogram for malignant neoplasm of breast from Last 3 Months or Most Recently Relevant to Health Maintenance Results * XR Knee Right 4 or More Views (08/20/2025 10:49 AM CDT) Anatomical Region Laterality Modality Lower Extremities, Knee Right Computed Radiography 08/20/2025 10:5 9 AM CDT Impressions 08/20/2025 10:59 AM CDT 1. Unchanged, moderate right and mild left knee tricompartmental osteoarthritis. Electronically signed by: Beau Bettencourt M.D. Narrative 08/20/2025 10:59 AM CDT EXAMINATION: XR KNEE LEFT 4 OR MORE VIEWS, XR KNEE RIGHT 4 OR MORE VIEWS HISTORY: Bilateral knee osteoarthritis FINDINGS: 4 view examinations of both knees are compared with studies from 06/09/2022. On the right, there is no change in a revised anterior cruciate ligament reconstruction with tibial and femoral tunnel interference screws. There is unchanged moderate, medial predominant tricompartmental osteoarthritis of the right knee. There is a suprapatellar loose body or heterotopic ossification. On the left, there is unchanged mild medial predominant, tricompartmental knee osteoarthritis. There is no fracture or joint effusion. Procedure Note Beau Bettencourt MD - 08/20/2025 EXAMINATION: XR KNEE LEFT 4 OR MORE VIEWS, XR KNEE RIGHT 4 OR MORE VIEWS HISTORY: Bilateral knee osteoarthritis FINDINGS: 4 view examinations of both knees are compared with studies from 06/09/2022. On the right, there is no change in a revised anterior cruciate ligament reconstruction with tibial and femoral tunnel interference screws. There is unchanged moderate, medial predominant tricompartmental osteoarthritis of the right knee. There is a suprapatellar loose body or heterotopic ossification. On the left, there is unchanged mild medial predominant, tricompartmental knee osteoarthritis. There is no fracture or joint effusion. IMPRESSION: 1. Unchanged, moderate right and mild left knee tricompartmental osteoarthritis. Electronically signed by: Beau Bettencourt M.D. Fady Noriega MD IMG XR PROCEDURES Final R esult * XR Knee Left 4 or More Views (08/20/2025 10:49 AM CDT) Anatomical Region Laterality Modality Lower Extremities, Knee Left Computed Radiography 08/20/2025 10:5 9 AM CDT Impressions 08/20/2025 10:59 AM CDT 1. Unchanged, moderate right and mild left knee tricompartmental osteoarthritis. Electronically signed by: Beau Bettencourt M.D. Narrative 08/20/2025 10:59 AM CDT EXAMINATION: XR KNEE LEFT 4 OR MORE VIEWS, XR KNEE RIGHT 4 OR MORE VIEWS HISTORY: Bilateral knee osteoarthritis FINDINGS: 4 view examinations of both knees are compared with studies from 06/09/2022. On the right, there is no change in a revised anterior cruciate ligament reconstruction with tibial and femoral tunnel interference screws. There is unchanged moderate, medial predominant tricompartmental osteoarthritis of the right knee. There is a suprapatellar loose body or heterotopic ossification. On the left, there is unchanged mild medial predominant, tricompartmental knee osteoarthritis. There is no fracture or joint effusion. Procedure Note Beau Bettencourt MD - 08/20/2025 EXAMINATION: XR KNEE LEFT 4 OR MORE VIEWS, XR KNEE RIGHT 4 OR MORE VIEWS HISTORY: Bilateral knee osteoarthritis FINDINGS: 4 view examinations of both knees are compared with studies from 06/09/2022. On the right, there is no change in a revised anterior cruciate ligament reconstruction with tibial and femoral tunnel interference screws. There is unchanged moderate, medial predominant tricompartmental osteoarthritis of the right knee. There is a suprapatellar loose body or heterotopic ossification. On the left, there is unchanged mild medial predominant, tricompartmental knee osteoarthritis. There is no fracture or joint effusion. IMPRESSION: 1. Unchanged, moderate right and mild left knee tricompartmental osteoarthritis. Electronically signed by: Beau Bettencourt M.D. Fady Noriega MD G XR PROCEDURES Final R esult * UT ARTHROCENTESIS ASPIR&/INJ MAJOR JT/BURSA W/O US (08/20/2025 10:30 AM CDT) Narrative Fady Noriega MD - 08/20/2025 10:30 AM CDT Fady Noriega MD 08/26/2025 10:04 AM Large Joint Injection: R knee Performed by: Fady Noriega MD Authorized by: Fady Noriega MD Large Joint Injection/Aspiration: Consent Given by: Patient Verbal consent obtained: Yes Supporting Documentation: Indications: Pain Procedure Details: Location: Knee Site: R knee Prep: patient was prepped and draped in usual sterile fashion Needle Size: 22 G Approach: Superior lateral Ultrasound guided: No Medications: 80 mg triamcinolone 40 mg/mL; 6 mL BUPivacaine HCl 0.25 % (2.5 mg/mL) Patient tolerance: Patient tolerated the procedure well with no immediate complications Fady Noriega MD IN CLINIC/BEDSIDE ORDERAB LES Final Result * (ABNORMAL) Diagnostic Mammogram Bilateral W [...] MD IMG MAMMO PROCEDURES Nicol l Result from Last 3 Months or Most Recently Relevant to Health Maintenance Insurance [facility] CHOICE PLUS FOR LIFE [facility] CHOICE PLUS [facility] WEST CLAIMS [facility] CHOICE PLUS [facility] CLAIMS [facility] Address: [address] [place] [address] Advance Directives For more information, please contact: [phone] * Full Code (Latest Code Status on File) Date Activated Date Inactivated Comments 01/09/2021 12:59 AM 01/13/2021 3:31 PM Care Teams Infection Control Coordinator Relationship Specialty Start Date End Date José Miguel Hankins MD [address] [place] [id number] PCP - General Family Medicine 05/17/23
[2025-10-23 08:17] VITALS: BP 126/65; PULSE 83; RESP 18; TEMP 36.1; O2SAT 100
[2025-10-23] MEDS: LACTATED RINGERS 1,000 ML 150 ML IV CONT (08:25)
--- NOTE | 2025-10-23 08:48 | WPDANESEPPF ---
Anes - Initial Pre Proc Eval Procedure: Operation Date: 10/23/25 09:30 Proposed Procedures p Screening Colonoscopy - Ricardo Yang MD Date/Time: 10/23/25 08:48 Surgeon: Ricardo Yang MD Pre Op Diagnosis: Personal history of colon polyps, unspecified Patient Data Age: 55 Gender: F Height: 1.7 m Weight: 77.9 kg Last Vital Signs Temp 97 F L 10/23/25 08:17 Pulse 83 10/23/25 08:17 Resp 18 10/23/25 08:17 BP 126/65 10/23/25 08:17 Pulse Ox 100 10/23/25 08:17 O2 Del Method Room Air 10/23/25 08:17 Allergies Allergy/AdvReac Type Severity Reaction Status Date / Time morphine AdvReac Intermediate Nausea and Verified 10/23/25 08:13 Vomiting Penicillins AdvReac Intermediate SEVERE Verified 10/23/25 08:13 LOCAL REACTION CHILD ???MUSCLE RELAXER-- Allergy Intermediate SVT-PAT Uncoded 05/07/25 09:25 EPISODE AFTER TAKING Home Medications ?Medication ?Instructions ?Recorded ?Confirmed ?Type levocetirizine 5 mg tablet 5 mg PO HS 03/06/21 10/23/25 History verapamil 240 mg 24 hr 240 mg PO DAILY 03/06/21 10/23/25 History capsule,extended release estradiol 2 mg tablet 2 mg PO DAILY 05/26/24 10/23/25 History budesonide 0.5 mg/2 mL suspension 0.5 mg (2 mL) irrigation DAILY 12/08/24 10/23/25 Rx for nebulization #180 mL ergocalciferol (vitamin D2) 1,250 1,250 mcg PO WEEKLY #13 caps 03/28/25 10/23/25 Rx mcg (50,000 unit) capsule (Vitamin D2) ibuprofen 600 mg tablet 600 mg PO Q6H PRN pain 05/07/25 10/03/25 History levothyroxine 75 mcg tablet 75 mcg PO DAILY #100 tabs 05/07/25 10/23/25 Rx (Synthroid) scopolamine base 1 mg over 3 days 1 patch transdermal Q3D PRN motion 05/07/25 10/03/25 Rx transdermal patch sickness #24 ea tirzepatide (weight loss) 5 mg/0.5 15 mg subcut WEEKLY 05/07/25 10/23/25 History mL subcutaneous pen injector (Zepbound) verapamil 40 mg tablet 40 mg PO PRN Rapid heartrate 10/03/25 10/03/25 History Patient hx anesthesia problems: none Family hx anesthesia problems: none Results Review: All pre-operative results and documents have been reviewed as part of the pre-operative evaluation. [facility] Past Medical History Medical History Ear pain, right Asthma Hypothyroidism Vitamin D deficiency, unspecified Hyperlipidemia, unspecified GERD (gastroesophageal reflux disease) SVT (supraventricular tachycardia) (~09/29/23) Chronic sinusitis Surgical History Surgical History Hx of LASIK 05/2004 History of sinus surgery 10/17/2009 image guided bilateral maxillary antrostomy, anterior ethmoid ectomy, frontal sinusotomy, inferior turbinate resection submucosally without fracture, resection of nasopharyngeal cyst 11/28/2021 History of tonsillectomy 1977 History of adrenal surgery [place] 01/08/2021 laparoscopic removal of adrenal mass H/O arthroscopic knee surgery R ACL & meniscur tear 10/12/2003 debridement 2007 R revision ACL reconstruction 02/04/2009 Family History Family History Father Diabetes mellitus Heart disease Thyroid disorder Mother Diabetes mellitus Heart disease TIA (transient ischemic attack) Other Depression Grandparent Alcoholism Grandparent Diabetes mellitus Tongue cancer Heart disease Social History Social History Smoking packs per day: 1 Smoking cigarettes per day: 20.0 Years smoked: 35 Smoking pack-years: 35.00 Smoking status: Former smoker Tobacco type: cigarettes Smoking end date: 12/30/20 Alcohol intake: current Drinks per week: 4 Alcohol use details: occasionally Substance use: never Substance use type: does not use Lack of Transportation: No Lack of Food: Never True Current Housing: I Have Housing Concerned About Future Housing: No Difficulty Paying Gas/Electric Bills: No Difficulty Paying for Meds: No Currently Unemployed: No Education: High School Diploma/GED Difficulty w/ Childcare or Family Care: No Living arrangements: with family Occupation/Education: occupation Gender identity (if verbalized by the patient): Female Sexual Orientation (if Verbalized by the Patient): Straight or Heterosexual Spiritual care concerns: No Anes - Eval Final PreProcedure Day of Procedure 10/23/25 08:48 Patient weight: normal Lungs: normal air movement Airway: Mallampati scale class II Neurological: alert and oriented Last oral intake: >/= 8 hours ASA classification: II Emergent: no Anesthetic plan: proceed Anesthesia type and monitoring: general GIVS and standard monitoring Results Review: All pre-operative results and documents have been reviewed as part of the pre-operative evaluation. Hx of PSVT, w GA but no issues if taking CCB day of, ex smoker, hypothyroidism. Informed Consent: The patient's anesthetic plan and its attendant risks and benefits were discussed with the patient/family/POA. Questions were solicited and answers provided to the satisfaction of the patient/family/POA.
--- NOTE | 2025-10-23 09:11 | PM.HPGS ---
History of Present Illness History of Present Illness Consent: Risks, benefits, and alternatives have been discussed and questions answered. Patient agrees to proceed with procedure. Chief complaint: Personal history of colon polyps, unspecified Narrative: Carol Madera is a 55 year old female with colon polyp in 2021 Review of Systems Review of Systems: All systems reviewed & are unremarkable except as noted in HPI and below PMFSH Past Medical History Medical History (Updated 10/23/25 @ 09:11 by Ricardo Yang MD) Adenomatous colon polyp Ear pain, right Asthma Hypothyroidism Vitamin D deficiency, unspecified Hyperlipidemia, unspecified GERD (gastroesophageal reflux disease) SVT (supraventricular tachycardia) (~09/29/23) Chronic sinusitis Surgical History Surgical History Hx of LASIK 05/2004 History of sinus surgery 10/17/2009 image guided bilateral maxillary antrostomy, anterior ethmoid ectomy, frontal sinusotomy, inferior turbinate resection submucosally without fracture, resection of nasopharyngeal cyst 11/28/2021 History of tonsillectomy 1977 History of adrenal surgery [place] 01/08/2021 laparoscopic removal of adrenal mass H/O arthroscopic knee surgery R ACL & meniscur tear 10/12/2003 debridement 2007 R revision ACL reconstruction 02/04/2009 Family History Family History Father Diabetes mellitus Heart disease Thyroid disorder Mother Diabetes mellitus Heart disease TIA (transient ischemic attack) Other Depression Grandparent Alcoholism Grandparent Diabetes mellitus Tongue cancer Heart disease Social History Social History Smoking packs per day: 1 Smoking cigarettes per day: 20.0 Years smoked: 35 Smoking pack-years: 35.00 Smoking status: Former smoker Tobacco type: cigarettes Smoking end date: 12/30/20 Alcohol intake: current Drinks per week: 4 Alcohol use details: occasionally Substance use: never Substance use type: does not use Lack of Transportation: No Lack of Food: Never True Current Housing: I Have Housing Concerned About Future Housing: No Difficulty Paying Gas/Electric Bills: No Difficulty Paying for Meds: No Currently Unemployed: No Education: High School Diploma/GED Difficulty w/ Childcare or Family Care: No Living arrangements: with family Occupation/Education: occupation Gender identity (if verbalized by the patient): Female Sexual Orientation (if Verbalized by the Patient): Straight or Heterosexual Spiritual care concerns: No Meds Home Medications and Allergies Home Medications ?Medication ?Instructions ?Recorded ?Confirmed ?Type levocetirizine 5 mg tablet 5 mg PO HS 03/06/21 10/23/25 History verapamil 240 mg 24 hr 240 mg PO DAILY 03/06/21 10/23/25 History capsule,extended release estradiol 2 mg tablet 2 mg PO DAILY 05/26/24 10/23/25 History budesonide 0.5 mg/2 mL suspension 0.5 mg (2 mL) irrigation DAILY 12/08/24 10/23/25 Rx for nebulization #180 mL ergocalciferol (vitamin D2) 1,250 1,250 mcg PO WEEKLY #13 caps 03/28/25 10/23/25 Rx mcg (50,000 unit) capsule (Vitamin D2) ibuprofen 600 mg tablet 600 mg PO Q6H PRN pain 05/07/25 10/03/25 History levothyroxine 75 mcg tablet 75 mcg PO DAILY #100 tabs 05/07/25 10/23/25 Rx (Synthroid) scopolamine base 1 mg over 3 days 1 patch transdermal Q3D PRN motion 05/07/25 10/03/25 Rx transdermal patch sickness #24 ea tirzepatide (weight loss) 5 mg/0.5 15 mg subcut WEEKLY 05/07/25 10/23/25 History mL subcutaneous pen injector (Zepbound) verapamil 40 mg tablet 40 mg PO PRN Rapid heartrate 10/03/25 10/03/25 History Allergies Allergy/AdvReac Type Severity Reaction Status Date / Time morphine AdvReac Intermediate Nausea and Verified 10/23/25 08:13 Vomiting Penicillins AdvReac Intermediate SEVERE Verified 10/23/25 08:13 LOCAL REACTION CHILD ???MUSCLE RELAXER-- Allergy Intermediate SVT-PAT Uncoded 05/07/25 09:25 EPISODE AFTER TAKING Vital Signs Vital Signs - 24 hr 10/23/25 08:17 Temperature 97 F L Pulse Rate 83 Respiratory Rate 18 Blood Pressure 126/65 Pulse Oximetry 100 Oxygen Delivery Room Air Exam Const: General: comfortable and no acute distress HENMT: Face/Nose/Sinus: Normal nares present Eyes: General: appearance normal, both eyes and all related structures Neck: Neck: no JVD Resp: Auscultation: clear to auscultation bilaterally Cardio: Rate: regular rate Rhythm: regular rhythm GI: Inspection: non-distended GI Palp: Yes Soft to palpation Skin: General skin exam: normal color Extrem: General: normal to inspection Psych: Mental Status: mental status grossly normal Assessment and Plan Assessment and plan (1) Adenomatous colon polyp: Code(s): D12.6 - Benign neoplasm of colon, unspecified Status: Acute Assessment and Plan: colonoscopy
--- NOTE | 2025-10-23 09:27 | S_PTH ---
PATIENT: Carol Madera LOC: [facility]#:[id number] AGE/SX: 55/F ROOM: RE10/23/[address]: Ricardo Yang MD : 1970 BED: DIS: 10/23/2025 SPEC #: [id number] RECD: 10/23/25 10:59 STATUS: ANTHONY REPreethi #: [id number] SCOTT: 10/23/25 09:[address]: Ricardo Yang DEPT: [facility] Surgical RECD BY: Sony Ireland ENTERED: 10/23/25 10:59 SP TYPE: Surgical OTHR DR: José Miguel Hankins MD Tissues: A - Colon Polypectomy Procedures: Hematoxylin and Eosin Stain Gross and Microscopic Level 4
[2025-10-23 09:31] VITALS: BP 115/95; PULSE 85; RESP 20; O2SAT 100
[2025-10-23 09:41] VITALS: BP 135/65; PULSE 86; RESP 19; O2SAT 100
[2025-10-23 09:51] VITALS: BP 112/66; PULSE 83; RESP 19; O2SAT 100
== END 2025-10-23 09:55 | disposition home or self-care (01) ==
PROVIDERS: PCP Family Medicine; Visit Provider Internal Medicine Gastroenterology
PROC: 0DJD8ZZ Inspection of Lower Intestinal Tract, Via Natural or Artificial Opening Endoscopic (ICD-10-PCS; CPT 45378; principal; 2025-10-23 09:30)
DX: Z12.11 Encounter for screening for malignant neoplasm of colon (principal); D12.4 Benign neoplasm of descending colon; K57.30 Diverticulosis of large intestine without perforation or abscess without bleeding; Z87.891 Personal history of nicotine dependence
CPT/HCPCS: 45385; 88305; J2003; J2704; J7120